=== PATIENT | male | born 1940 | race Caucasian/White ===

== ENCOUNTER 2020-08-21 14:30 | Outpatient (RCR) | payer MEDICARE, OTHER, SELFPAY ==
[2020-08-14 09:08] VITALS: BP 168/77; PULSE 79; RESP 18; TEMP 36.7
--- NOTE | 2020-08-14 11:22 | HP.PCM_ITS ---
(1) Decubitus ulcer of buttock, stage 1 Status: Acute Code(s): L89.301 - Pressure ulcer of unspecified buttock, stage 1 (2) Diabetic foot ulcer associated with type 1 diabetes mellitus Status: Acute Qualifiers: Diabetic foot ulcer location: heel Laterality: right Non-pressure ulcer stage: with other severity Qualified Code(s): E10.621 - Type 1 diabetes mellitus with foot ulcer; L97.418 - Non-pressure chronic ulcer of right heel and midfoot with other specified severity Code(s): E10.621 - Type 1 diabetes mellitus with foot ulcer; L97.509 - Non- pressure chronic ulcer of other part of unspecified foot with unspecified severity (3) Diabetic foot ulcer Status: Acute Qualifiers: Diabetic foot ulcer location: toe Diabetes mellitus type: type 1 Laterality: right Non-pressure ulcer stage: with other severity Qualified Code(s): E10.621 - Type 1 diabetes mellitus with foot ulcer; L97.518 - Non- pressure chronic ulcer of other part of right foot with other specified severity Code(s): E11.621 - Type 2 diabetes mellitus with foot ulcer; L97.509 - Non- pressure chronic ulcer of other part of unspecified foot with unspecified sev erity (4) 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 Status: Acute Qualifiers: Associated angina: without angina Qualified Code(s): I25.810 - Atherosclerosis of coronary artery bypass graft(s) without angina pectoris Code(s): I25.810 - Atherosclerosis of coronary artery bypass graft(s) without angina pectoris History of Present Illness Date of Service: 08/14/20 Chief Complaint: Follow-up bilateral buttocks right heel right great toe right 2nd toe right 5th toe History of Wound: 80-year-old white male with a history of open heart surgery recently had another heart attack this last summer 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 Supposedly developed these after rehab in an long-term all on the right leg. The buttocks is pretty much healed very dry skin from using drying agents we will suggest other agents to be used on his buttocks to make it skin more supple. Most areas on the right and left buttocks are all scabbed patient is also on renal dialysis. Past Medical History Past Medical History: Decubitus ulcers on the buttocks bilateral right heel ulcer right great toe right 2nd toe right 5th toe ulcers Allergies/Adverse Reactions: Allergies aspirin Adverse Reaction (Verified 08/14/20 10:17) NEEDS FOLLOW-UP listed as adverse reaction, yet pt is take it daily. atorvastatin [From Lipitor] Adverse Reaction (Verified 08/14/20 10:17) NEEDS FOLLOW-UP Penicillins Adverse Reaction (Verified 08/14/20 10:17) NEEDS FOLLOW-UP Home Medications: Ambulatory Orders Medication Instructions Recorded Allopurinol [Zyloprim] 150 mg PO DAILYCM 08/14/20 Amiodarone HCl 400 mg PO BID 08/14/20 Aspirin [Aspirin, Baby] 81 mg PO DAILY@0800 08/14/20 B Complex W-C No.20/Folic Acid 1 mg PO DAILY 08/14/20 [Renal Caps Softgel] Bumetanide 1 mg PO DAILY 08/14/20 Clopidogrel Bisulfate [Plavix] 75 mg PO DAILY 08/14/20 Gabapentin [Neurontin] 100 mg PO DAILY 08/14/20 Lactobacillus Acidophilus 2 tab BC DAILY 08/14/20 [Acidophilus] Lisinopril [Zestril] 2.5 mg BC DAILY 08/14/20 Metoprolol Tartrate [Lopressor 50 mg PO DAILY 08/14/20 (Beta Pedro)] Pantoprazole Sodium [Protonix] 40 mg PO DAILY 08/14/20 Ropinirole HCl 0.25 mg BC DAILY 08/14/20 Simvastatin [Zocor] 40 mg PO QHS 08/14/20 Lives: Spouse/ Significant Other Review of Systems Constitutional: Denies: Chills, Fever Eyes: Denies: Blurred vision, Drainage, Pain HEENT: Denies: Difficulty Hearing, Difficulty Swallowing, Sore Throat, Visual Changes Cardiovascular: Denies: Chest Pain, Palpitations, Syncope Respiratory: Denies: Cough, Shortness of Breath Gastrointestinal: Denies: Abdominal Pain, Nausea, Vomiting Genitourinary: Denies: Dysuria, Frequency Musculoskeletal: Denies: Joint Pain, Muscle pain Skin: Reports: - - Right heel decubitus ulcer with odor right great toenail and top of toe eschar that is hardened not mushy or soft right 2nd toe open more superficial right 5th toenail blackened and firm. Denies: Jaundice, Rash Neurological: Denies: Balance problems, Change in Speech, Difficulty swallowing, Focal weakness Psychiatric: Denies: Anxiety, Depression Endocrine: Denies: Change in Body Habitus Hematologic/ Lymphatic: Denies: Adenopathy - Physical Exam Vital Signs Temp Pulse Resp BP 98.0 F 79 18 168/77 H 08/14/20 09:08 08/14/20 09:08 08/14/20 09:08 08/14/20 09:08 General: Oriented x3, Cooperative, Well developed HEENT: Atraumatic, PERRLA Oral: Moist Mucosa Neck: Supple, No JVD Lungs: Clear to auscultation, Normal air movement Cardiovascular: Regular rate, Regular Rhythm Abdomen: Bowel Sounds Present, Soft, Non Tender, No Hepato-splenomegaly Extremities: No clubbing, No edema Skin: Ulcer/ Wound - Right heel decubitus ulcer with odor right great toe nail and top of toe black and hard eschar, right 2nd toe open superficial right 5th toenail hardened black Wound Measurements and Assessment WC - Nurse 1 - General Ulcer Measurement Start: 08/14/20 09:08 Freq: Status: Active Protocol: Activity Type Activity Date Activity User E-Sign Co-Sign Detail Recorded Client Recorded Date Recorded By Document 08/14/20 09:14 ID [id number] 08/14/20 09:48 ID 08/14/20 09:14 Wound Center Nurse 1 [Ulcer Assessment] #5 Bilateral Buttock -Current Size (cm) - Length 0.1 -Current Size (cm) - Width 0.1 -Current Size (cm) - Depth 0.1 -Total Square Cm 0.01 -Date of Last Picture (Recall this 08/14/20 field) -Photo Taken Yes -Epithelialization Large 67-100% -Exudate Amt None Present -Wound Margin Flat & Intact -Granulation Amt Large (67-100%) -Granulation Quality Pale,Country Walk,Red -Slough/Fibrin No -Necrosis Amt None Present (0 %) -Texture (Dana-wound Skin Appearance) Assessed,Rash -Moisture (Dana-wound Skin Appearance Assessed ) -Color (Dana-wound Skin Appearance) Assessed -Temperature (Dana-wound Skin No Abnormality Appearance) (Pt Warm) -Tenderness on Palpation (Dana-wound No Skin Appearance) -Ulcer Cleansing Rinsed/ Irrigated with Saline -Foul Odor after Cleansing No -Anesthetic Used 4% Lidocaine Solution #4 5th Right Toe -Current Size (cm) - Length 0.5 -Current Size (cm) - Width 0.5 -Current Size (cm) - Depth 0.1 -Total Square Cm 0.25 -Date of Last Picture (Recall this 08/14/20 field) -Photo Taken Yes -Exudate Amt None Present -Wound Margin Thickened -Slough/Fibrin No -Necrotic Tissue Type Eschar -Texture (Dana-wound Skin Appearance) Assessed -Moisture (Dana-wound Skin Appearance Assessed ) -Color (Dana-wound Skin Appearance) Assessed -Temperature (Dana-wound Skin No Abnormality Appearance) (Pt Warm) -Tenderness on Palpation (Dana-wound No Skin Appearance) -Ulcer Cleansing Rinsed/ Irrigated with Saline -Foul Odor after Cleansing No -Anesthetic Used 4% Lidocaine Solution #3 2nd Right Toe -Current Size (cm) - Length 0.5 -Current Size (cm) - Width 0.6 -Current Size (cm) - Depth 0.1 -Total Square Cm 0.30 -Date of Last Picture (Recall this 08/14/20 field) -Photo Taken Yes -Exudate Amt Small -Exudate Type Sanguineous -Wound Margin Thickened & Rolled Under -Granulation Amt Medium (34-66%) -Granulation Quality Pale,Country Walk,Red -Necrosis Amt Medium (34-66%) -Necrotic Tissue Type Adherent Slough -Texture (Dana-wound Skin Appearance) Assessed -Moisture (Dana-wound Skin Appearance Assessed ) -Color (Dana-wound Skin Appearance) Assessed -Temperature (Dana-wound Skin No Abnormality Appearance) (Pt Warm) -Tenderness on Palpation (Dana-wound No Skin Appearance) -Ulcer Cleansing Rinsed/ Irrigated with Saline -Foul Odor after Cleansing No -Anesthetic Used 4% Lidocaine Solution #2 Right Big Toe -Current Size (cm) - Length 2.2 -Current Size (cm) - Width 1.4 -Current Size (cm) - Depth 0.1 -Total Square Cm 3.08 -Date of Last Picture (Recall this 08/14/20 field) -Photo Taken Yes -Change in Wound Grade/Stage No Query Text:If change please identify the Stage/Grade in the comment (ie. S2 G3) -Wound Margin Thickened -Necrosis Amt Large (67-100%) -Necrotic Tissue Type Eschar -Texture (Dana-wound Skin Appearance) Assessed -Moisture (Dana-wound Skin Appearance Assessed ) -Color (Dana-wound Skin Appearance) Assessed -Temperature (Dana-wound Skin No Abnormality Appearance) (Pt Warm) -Tenderness on Palpation (Dana-wound No Skin Appearance) -Ulcer Cleansing Rinsed/ Irrigated with Saline -Foul Odor after Cleansing No -Anesthetic Used 4% Lidocaine Solution #1 Right Heel -Current Size (cm) - Length 3.0 -Current Size (cm) - Width 2.3 -Current Size (cm) - Depth 0.1 -Total Square Cm 6.90 -Date of Last Picture (Recall this 08/14/20 field) -Photo Taken Yes -Exudate Amt None Present -Wound Margin Thickened -Slough/Fibrin Yes -Necrosis Amt Large (67-100%) -Necrotic Tissue Type Eschar -Texture (Dana-wound Skin Appearance) Assessed -Moisture (Dana-wound Skin Appearance Assessed ) -Color (Dana-wound Skin Appearance) Assessed -Temperature (Dana-wound Skin No Abnormality Appearance) (Pt Warm) -Tenderness on Palpation (Dana-wound No Skin Appearance) -Ulcer Cleansing Rinsed/ Irrigated with Saline -Foul Odor after Cleansing No -Anesthetic Used 4% Lidocaine Solution [Edema Assessment] -Right Calf (cm) 33 -Right Ankle (cm) 28.5 WC - Nurse 2 - General Ulcer CM Notes Start: 08/14/20 09:08 Freq: Status: Active Protocol: Activity Type Activity Date Activity User E-Sign Co-Sign Detail Recorded Client Recorded Date Recorded By Document 08/14/20 09:48 MW [id number] 08/14/20 09:52 MW Document 08/14/20 09:53 MW [id number] 08/14/20 10:07 MW 08/14/20 08/14/20 09:48 09:53 Wound Center Nurse 2 [Procedure/Treatment] #5 Bilateral Buttock -Time 09:54 -Correct Patient Yes -Correct Side, Site, Position Yes -Correct Procedure Yes -Procedure Performed No -Post Debridement (cm) - Length 0 -Post Debridement (cm) - Width 0 -Post Debridement (cm) - Depth 0 -Total Square (Post) (cm) 0 -Wound/Ulcer Outcome Healed- Epithelialized #4 5th Right Toe -Time 09:55 -Correct Patient Yes -Correct Side, Site, Position Yes -Correct Procedure Yes -Procedure Performed No -Post Debridement (cm) - Length 2.7 -Post Debridement (cm) - Width 1.7 -Post Debridement (cm) - Depth 0 -Total Square (Post) (cm) 4.59 -Wound/Ulcer Outcome Not Healed #3 2nd Right Toe -Time 09:55 -Correct Patient Yes -Correct Side, Site, Position Yes -Correct Procedure Yes -Procedure Performed Yes -Type of Procedure Debridement -Clinical Debridement Subcutaneous -Tissue Removed Subcutaneous -Post Debridement (cm) - Length 0.5 -Post Debridement (cm) - Width 0.5 -Post Debridement (cm) - Depth 0.1 -Total Square (Post) (cm) 0.25 -Area of Debridement (cm) - Length 0.5 -Area of Debridement (cm) - Width 0.5 -Total Square (Area) (cm) 0.25 -Tunneling No -Undermining/Tunneling No -Circular Undermining No -Wound/Ulcer Outcome Not Healed -Ulcer Cleansing Rinsed/ Irrigated with Saline -Foul Odor after Cleansing No -Bioengineered Tissue No -Bleeding Controlled with Pressure -Offloading No -Treatment Response Procedure Tolerated Well -Debridement - Subq, 1st 20sq cm No #2 Right Big Toe -Time 09:56 -Correct Patient Yes -Correct Side, Site, Position Yes -Correct Procedure Yes -Procedure Performed No -Wound/Ulcer Outcome Not Healed #1 Right Heel -Time 09:56 -Correct Patient Yes -Correct Side, Site, Position Yes -Correct Procedure Yes -Clinical Debridement Subcutaneous -Tissue Removed Subcutaneous -Post Debridement (cm) - Length 2.3 -Post Debridement (cm) - Width 4.4 -Post Debridement (cm) - Depth 0.3 -Total Square (Post) (cm) 10.12 -Area of Debridement (cm) - Length 2.6 -Area of Debridement (cm) - Width 4.4 -Total Square (Area) (cm) 11.44 -Tunneling No -Undermining/Tunneling No -Circular Undermining No -Wound/Ulcer Outcome Not Healed -Ulcer Cleansing Rinsed/ Irrigated with Saline -Foul Odor after Cleansing No -Bioengineered Tissue No -Bleeding Controlled with Pressure -Offloading No -Treatment Response Procedure Tolerated Well -Debridement - Subq, 1st 20sq cm Yes [See Physician Procedure note for Specifics] Pain Scale: 0-10 Numeric [Pain] -Is Patient Pain Free? Yes Yes WC - Nurse 3 - General Ulcer D/C NN Start: 08/14/20 09:08 Freq: Status: Active Protocol: Activity Type Activity Date Activity User E-Sign Co-Sign Detail Recorded Client Recorded Date Recorded By Document 08/14/20 10:20 MT [id number] 08/14/20 10:23 MT 08/14/20 10:20 Wound Care Nurse 3 [Wound Dressing] #4 5th Right Toe -Other Dressing betadine -Primary Dressing Covered/Secured Dry Gauze,Dry with Gauze & Roll Gauze,Secured with Tape #3 2nd Right Toe -Other Dressing betadine -Primary Dressing Covered/Secured Dry Gauze & with Roll Gauze, Secured with Tape #2 Right Big Toe -Other Dressing fibracol, adaptic -Primary Dressing Covered/Secured Dry Gauze,Dry with Gauze & Roll Gauze,Secured with Tape #1 Right Heel -Ulcer Cleansing Rinsed/ Irrigated with Saline -Primary Dressing Applied Fibracol Plus 4x4 -Other Dressing nurses hat, adaptic -Primary Dressing Covered/Secured Dry Gauze, with Secured with Tape -Fibracol Plus 4x4 1 WC - Visit Discharge [Visit Discharge Information] -Discharge Condition Stable -Ambulatory Status Wheelchair -Transportation Private Auto -Medication Reconcilliation completed No & provided to patient/care provider -Notes: change daily, taught daughter how to make nurses hat. Musculoskeletal: No Tenderness to Palpation of Joints or Extremities Lymphatic: No Cervical, Supraclavicular, or Inguinal Adenopathy Neurological: Cranial nerves II-XII grossly intact, Neuro grossly intact Psych/Mental Status: Normal Affect, Appropriate Debridement Note Post-Debridement Measurements/Treatment WC - Nurse 2 - General Ulcer CM Notes Start: 08/14/20 09:08 Freq: Status: Active Protocol: Activity Type Activity Date Activity User E-Sign Co-Sign Detail Recorded Client Recorded Date Recorded By Document 08/14/20 09:48 MW [id number] 08/14/20 09:52 MW Document 08/14/20 09:53 MW [id number] 08/14/20 10:07 MW 08/14/20 08/14/20 09:48 09:53 Wound Center Nurse 2 #5 Bilateral Buttock -Time 09:54 -Correct Patient Yes -Correct Side, Site, Position Yes -Correct Procedure Yes -Procedure Performed No -Post Debridement (cm) - Length 0 -Post Debridement (cm) - Width 0 -Post Debridement (cm) - Depth 0 -Total Square (Post) (cm) 0 -Wound/Ulcer Outcome Healed- Epithelialized #4 5th Right Toe -Time 09:55 -Correct Patient Yes -Correct Side, Site, Position Yes -Correct Procedure Yes -Procedure Performed No -Post Debridement (cm) - Length 2.7 -Post Debridement (cm) - Width 1.7 -Post Debridement (cm) - Depth 0 -Total Square (Post) (cm) 4.59 -Wound/Ulcer Outcome Not Healed #3 2nd Right Toe -Time 09:55 -Correct Patient Yes -Correct Side, Site, Position Yes -Correct Procedure Yes -Procedure Performed Yes -Type of Procedure Debridement -Clinical Debridement Subcutaneous -Tissue Removed Subcutaneous -Post Debridement (cm) - Length 0.5 -Post Debridement (cm) - Width 0.5 -Post Debridement (cm) - Depth 0.1 -Total Square (Post) (cm) 0.25 -Area of Debridement (cm) - Length 0.5 -Area of Debridement (cm) - Width 0.5 -Total Square (Area) (cm) 0.25 -Tunneling No -Undermining/Tunneling No -Circular Undermining No -Wound/Ulcer Outcome Not Healed -Ulcer Cleansing Rinsed/ Irrigated with Saline -Foul Odor after Cleansing No -Bioengineered Tissue No -Bleeding Controlled with Pressure -Offloading No -Treatment Response Procedure Tolerated Well -Debridement - Subq, 1st 20sq cm No #2 Right Big Toe -Time 09:56 -Correct Patient Yes -Correct Side, Site, Position Yes -Correct Procedure Yes -Procedure Performed No -Wound/Ulcer Outcome Not Healed #1 Right Heel -Time 09:56 -Correct Patient Yes -Correct Side, Site, Position Yes -Correct Procedure Yes -Clinical Debridement Subcutaneous -Tissue Removed Subcutaneous -Post Debridement (cm) - Length 2.3 -Post Debridement (cm) - Width 4.4 -Post Debridement (cm) - Depth 0.3 -Total Square (Post) (cm) 10.12 -Area of Debridement (cm) - Length 2.6 -Area of Debridement (cm) - Width 4.4 -Total Square (Area) (cm) 11.44 -Tunneling No -Undermining/Tunneling No -Circular Undermining No -Wound/Ulcer Outcome Not Healed -Ulcer Cleansing Rinsed/ Irrigated with Saline -Foul Odor after Cleansing No -Bioengineered Tissue No -Bleeding Controlled with Pressure -Offloading No -Treatment Response Procedure Tolerated Well -Debridement - Subq, 1st 20sq cm Yes Pain Scale: 0-10 Numeric Is Patient Pain Free? Yes Yes WC - Nurse 3 - General Ulcer D/C NN Start: 08/14/20 09:08 Freq: Status: Active Protocol: Activity Type Activity Date Activity User E-Sign Co-Sign Detail Recorded Client Recorded Date Recorded By Document 08/14/20 10:20 ID [id number] 08/14/20 10:23 ID 08/14/20 10:20 Wound Care Nurse 3 #4 5th Right Toe -Other Dressing betadine -Primary Dressing Covered/Secured with Dry Gauze,Dry Gauze & Roll Gauze,Secured with Tape #3 2nd Right Toe -Other Dressing betadine -Primary Dressing Covered/Secured with Dry Gauze & Roll Gauze, Secured with Tape #2 Right Big Toe -Other Dressing fibracol, adaptic -Primary Dressing Covered/Secured with Dry Gauze,Dry Gauze & Roll Gauze,Secured with Tape #1 Right Heel -Ulcer Cleansing Rinsed/ Irrigated with Saline -Primary Dressing Applied Fibracol Plus 4x4 -Other Dressing nurses hat, adaptic -Primary Dressing Covered/Secured with Dry Gauze, Secured with Tape -Fibracol Plus 4x4 1 WC - Visit Discharge Discharge Condition Stable Ambulatory Status Wheelchair Transportation Private Auto Medication Reconcilliation completed & No provided to patient/care provider Notes: change daily, taught daughter how to make nurses hat. Wound debrided: Right heel decubitus ulcer Wound Grade/Stage: Stage III Type of Debridement: Excisional debridement Anesthesia Used: 5% Lidocaine Gel Depth: Down to and including healthy tissue, in the subcutaneous layer Percentage of wound debrided: 100 Instrument Used: #15 blade, Forceps, - - Scissors Tissue Removed: Eschar slough devitalized tissue bad odor Severity: Fat Layer Exposed Amount of bleeding with debridement: Mild Bleeding Controlled with: Compression and gauze Patient tolerated procedure well - Additional Wound Wound debrided: Right 2nd toe Wound Grade/Stage: Stage II Type of Debridement: Excisional debridement Anesthesia Used: 5% Lidocaine Gel Depth: Down to and including healthy tissue Percentage of wound debrided: 100 Instrument Used: 5mm curette, #15 blade, Forceps Tissue Removed: Eschar slough Severity: Limited To Skin Breakdown Amount of bleeding with debridement: Mild Bleeding Controlled with: Pressure, Compression and gauze - Additional Wound Wound debrided: Right 5th toe Operative Diagnosis: No debridement - Additional Wound Wound debrided: Right great toe Operative Diagnosis: No debridement Assessment/Plan Aerobic and anaerobic cultures obtained Active Problems (Last Updated 08/14/20 @ 10:03 by Julee Reynolds) Decubitus ulcer of buttock, stage 1 (Acute) Diabetic foot ulcer associated with type 1 diabetes mellitus (Acute) Diabetic foot ulcer (Acute) 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 Bilateral buttocks decubitus ulcer resolved. Right great toe ulcer unstageable. Right 2nd toe decubitus ulcer stage II. Right little toe decubitus ulcer unstageable Plan: Clean feet with Hibiclens. Apply Fibracol to wound bases of open wounds moistened cover with Adaptic gauze tape Archie. Right great toe right 5th toe painted with povidone-iodine 2-3 times a day for drying. Offload foot. Take metronidazole 250 3 times daily x14 days #42. We will call with the culture results. Follow-up in 1 week
[2020-08-21 15:03] VITALS: BP 119/48; PULSE 72; RESP 18; TEMP 36.1
[2020-08-21 16:20] VITALS: BP 120/50
--- NOTE | 2020-08-21 16:50 | RAD_ITS ---
HISTORY: FOOT ULCER ON HEEL Technique: Right foot AP, lateral, and oblique radiographs Comparison: None available Findings: There may be a chronic insufficiency fracture to the distal tuft of the great toe Bone mineral density is diminished. Atherosclerotic calcific plaque throughout the foot. Arthritis at the intertarsal joints as well as tarsometatarsal joints and interphalangeal joints. Soft tissue swelling about the foot Ulcer plantar to the weightbearing surface of the calcaneus without focal osseous erosion No focal abnormality or radiopaque foreign body is seen in the surrounding soft tissues. RAD/Foot min 3 Views IMPRESSION: Ulceration adjacent to the weightbearing surface of the calcaneus without osseous erosion perceived. Soft tissue swelling about the foot. Osteoporosis. Arthritis. Possible chronic fracture the distal tuft of the great toe at 2239 Reported and signed by: Andrés Holliday MD Electronically Signed: Andrés Holliday MD at 22:38 EST Tel , Service support ,
[2020-08-21 16:53] LABS: Absolute Lymphocyte Count 1.47 X10^3/uL (0.83-4.51); Absolute Neutrophil Count 6.8 X10^3/uL (2.0-7.7); Basophil# 0.06 X10^3/uL; Basophil% 0.6 % (0-1); Eosinophil# 0.28 X10^3/uL; Hematocrit 33.1 % (40-54); Hemoglobin 10.3 g/dL (13.0-16.5); Lymphocyte # 1.47 X10^3/ul (4.0); Lymphocyte % 15.8 % (19-41); Mean Corp Hgb Conc 31.1 g/dL (32-36); Mean Corpuscular Hgb 31.8 pg (27.0-32.0); Mean Corpuscular Volume 102.2 fL (80-94); Mean Platelet Vol. 10.4 fl (6.2-12.0); Monocyte# 0.69 X10^3/uL; Monocyte% 7.4 % (0-10); NRBC Flagged by Analyzer 0 % (0-5); Neutrophil # 6.75 X10^3/uL (2.7-7.7); Neutrophil % 72.7 % (47-70); Platelet Count 193 K/mm3 (150-450); RBC Distribution Width CV 17.3 % (11.6-14.6); RBC Distribution Width SD 64.7 fl (35.1-43.9); Red Blood Count 3.24 M/mm3 (4.6-6.2); White Blood Count 9.3 K/mm3 (4.4-11.0)
[2020-08-21 17:36] LABS: Erythrocyte Sedimentation Rate 38 mm/hr (0-20)
[2020-08-21 18:30] LABS: AST(SGOT) 21 U/L (15-37); Alanine Aminotransfer ALT/SGPT 22 U/L (16-61); Albumin, Serum 3.6 g/dL (3.2-5.0); Alkaline Phosphatase 77 U/L (45-117); Anion Gap 11 (5-15); BUN 67 mg/dL (7-18); BUN/Creat Ratio 8.2 RATIO (10-20); Calcium,Total 9.4 mg/dL (8.5-10.1); Chloride 96 mmol/L (98-107); Creatinine, Serum 8.19 mg/dL (0.70-1.30); EST Glomerular Filtration Rate 7 mL/min (>60); Est Glom Filt Rate - Afr Amer 8 mL/min (>60); Globulin 3.7 g/dL (2.2-4.2); Glucose 87 mg/dL (74-106); Potassium 3.7 mmol/L (3.5-5.1); Protein, Total 7.3 g/dL (6.4-8.2); Sodium Level 137 mmol/L (136-145)
--- NOTE | 2020-08-21 20:00 | PN.PCM_ITS ---
(1) Ulcer of right heel and midfoot with necrosis of muscle Status: Acute Code(s): L97.413 - Non-pressure chronic ulcer of right heel and midfoot with necrosis of muscle (2) Ulcer of right foot with fat layer exposed Status: Acute Code(s): L97.512 - Non-pressure chronic ulcer of other part of right foot with fat layer exposed (3) Peripheral vascular disease Status: Acute Code(s): I73.9 - Peripheral vascular disease, unspecified (4) ESRD (end stage renal disease) on dialysis Status: Acute Code(s): N18.6 - End stage renal disease; Z99.2 - Dependence on renal dialysis (5) Cellulitis of right lower limb Status: Acute Code(s): L03.115 - Cellulitis of right lower limb Type of Wound Date of Service: 08/21/20 Chief Complaint: Right heel ulcer. 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 He relates that he developed these ulcers after he was at the rehabilitation unit recovering from his open heart surgery. He has some discomfort to the wounds. He denies fever, chill, nausea, vomiting at this time. He is on hemodialysis. He is on hemodialysis Mondays and Fridays for end-stage renal disease. He has been taking for cefixime (400 mg PO daily), Bactrim (DS PO twice daily), and metronidazole (250 mg PO three times daily) as prescribed by another wound care center provider last week. He denies history of C. difficil e. His reports that he is approximately 5 foot 8 and weighs 170 pounds within the past week at dialysis. He goes to [facility] dialysis [facility]. The ulcers have been present for over a month. The ulcers continue to drain and have an odor. He has been changing the heel ulcer with Aquacel and the toe ulcer sites have been changed with Betadine. Progress of Wound: Infection noted - Physical Exam Vital Signs Temp Pulse Resp BP 97 F L 72 18 120/50 L 08/21/20 15:03 08/21/20 15:03 08/21/20 15:03 08/21/20 16:20 General: Alert, Oriented x3, Cooperative, No apparent distress HEENT: Atraumatic Extremities: No cyanosis, Capillary Refill Less than 3 Seconds, No Calf Tenderness - Right, Diminished Peripheral Pulses, Edema Skin: Ulcer/ Wound - Heel ulcer with probing to deep structures not directly bone. Fibrous and necrotic moist tissue is noted with odor and nonadhered eschar. There is no erythema or streaking or giovany purulence on expression. The eschar to the distal right fifth toe was removed with exposed firm white phalanx bone., - - Dry mummified eschar to distal hallux is well adhered. No bogginess or fluctuance on palpation Wound Measurements and Assessment WC - Nurse 1 - General Ulcer Measurement Start: 08/14/20 09:08 Freq: Status: Active Protocol: Activity Type Activity Date Activity User E-Sign Co-Sign Detail Recorded Client Recorded Date Recorded By Document 08/21/20 15:03 RB [id number] 08/21/20 15:17 RB 08/21/20 15:03 Wound Center Nurse 1 [Ulcer Assessment] #4 5th Right Toe -Combined with other wound No -Current Size (cm) - Length 0.1 -Current Size (cm) - Width 0.1 -Current Size (cm) - Depth 0.1 -Total Square Cm 0.01 -Tunneling No -Undermining/Tunneling No -Circular Undermining No -Exudate Amt None Present -Wound Margin Distinct, Outline Attached -Granulation Amt None Present (0 %) -Slough/Fibrin Yes -Necrosis Amt Large (67-100%) -Necrotic Tissue Type Eschar -Structure Exposed N/A -Texture (Dana-wound Skin Appearance) Assessed -Moisture (Dana-wound Skin Appearance Assessed ) -Color (Dana-wound Skin Appearance) Assessed -Temperature (Dana-wound Skin No Abnormality Appearance) (Pt Warm) -Tenderness on Palpation (Dana-wound No Skin Appearance) -Ulcer Cleansing Wound Cleanser -Foul Odor after Cleansing No -Anesthetic Used 5% Lidocaine Gel #3 2nd Right Toe -Combined with other wound No -Current Size (cm) - Length 0.1 -Current Size (cm) - Width 0.1 -Current Size (cm) - Depth 0.1 -Total Square Cm 0.01 -Tunneling No -Undermining/Tunneling No -Circular Undermining No -Exudate Amt Small -Exudate Type Serosanguineous -Wound Margin Distinct, Outline Attached -Granulation Amt Medium (34-66%) -Granulation Quality Mission -Slough/Fibrin Yes -Necrosis Amt Small (1-33%) -Necrotic Tissue Type Adherent Slough -Structure Exposed N/A -Texture (Dana-wound Skin Appearance) Assessed -Moisture (Dana-wound Skin Appearance Assessed ) -Color (Dana-wound Skin Appearance) Assessed -Temperature (Dana-wound Skin No Abnormality Appearance) (Pt Warm) -Tenderness on Palpation (Dana-wound No Skin Appearance) -Ulcer Cleansing Wound Cleanser -Foul Odor after Cleansing No -Anesthetic Used 5% Lidocaine Gel #2 Right Big Toe -Combined with other wound No -Current Size (cm) - Length 0.1 -Current Size (cm) - Width 0.1 -Current Size (cm) - Depth 0.1 -Total Square Cm 0.01 -Tunneling No -Undermining/Tunneling No -Circular Undermining No -Exudate Amt None Present -Wound Margin Distinct, Outline Attached -Granulation Amt None Present (0 %) -Slough/Fibrin Yes -Necrosis Amt Large (67-100%) -Necrotic Tissue Type Eschar -Structure Exposed N/A -Texture (Dana-wound Skin Appearance) Assessed -Moisture (Dana-wound Skin Appearance Assessed ) -Color (Dana-wound Skin Appearance) Assessed -Temperature (Dana-wound Skin No Abnormality Appearance) (Pt Warm) -Tenderness on Palpation (Dana-wound No Skin Appearance) -Ulcer Cleansing Wound Cleanser -Foul Odor after Cleansing No -Anesthetic Used 5% Lidocaine Gel #1 Right Heel -Combined with other wound No -Current Size (cm) - Length 2.5 -Current Size (cm) - Width 7.8 -Current Size (cm) - Depth 0.4 -Total Square Cm 19.50 -Epithelialization None Present -Tunneling No -Undermining/Tunneling No -Circular Undermining No -Exudate Amt Medium -Exudate Type Serosanguineous -Wound Margin Distinct, Outline Attached -Granulation Amt Small (1-33%) -Granulation Quality Mission -Slough/Fibrin Yes -Necrosis Amt Large (67-100%) -Necrotic Tissue Type Eschar -Structure Exposed N/A -Texture (Dana-wound Skin Appearance) Assessed, Friable, Scarring -Moisture (Dana-wound Skin Appearance Assessed ) -Color (Dana-wound Skin Appearance) Assessed -Temperature (Dana-wound Skin No Abnormality Appearance) (Pt Warm) -Tenderness on Palpation (Dana-wound No Skin Appearance) -Ulcer Cleansing Wound Cleanser -Foul Odor after Cleansing Yes -Anesthetic Used 5% Lidocaine Gel WC - Nurse 2 - General Ulcer CM Notes Start: 08/14/20 09:08 Freq: Status: Active Protocol: Activity Type Activity Date Activity User E-Sign Co-Sign Detail Recorded Client Recorded Date Recorded By Document 08/21/20 15:41 RENITA [id number] 08/21/20 15:51 08/21/20 15:41 Wound Center Nurse 2 [Procedure/Treatment] #4 5th Right Toe -Time 15:42 -Correct Patient Yes -Correct Side, Site, Position Yes -Correct Procedure Yes -Procedure Performed Yes -Type of Procedure Debridement -Clinical Debridement Subcutaneous -Tissue Removed Subcutaneous -Post Debridement (cm) - Length 0.5 -Post Debridement (cm) - Width 0.3 -Post Debridement (cm) - Depth 0.2 -Total Square (Post) (cm) 0.15 -Area of Debridement (cm) - Length 0.5 -Area of Debridement (cm) - Width 0.3 -Total Square (Area) (cm) 0.15 -Tunneling No -Undermining/Tunneling No -Circular Undermining No -Wound/Ulcer Outcome Not Healed -Ulcer Cleansing Rinsed/ Irrigated with Saline -Foul Odor after Cleansing No -Bioengineered Tissue No -Bleeding Controlled with Pressure -Offloading No -Treatment Response Procedure Tolerated Well -Debridement - Subq, 1st 20sq cm No #3 2nd Right Toe -Time 15:43 -Correct Patient Yes -Correct Side, Site, Position Yes -Correct Procedure Yes -Procedure Performed Yes -Type of Procedure Debridement -Clinical Debridement Subcutaneous -Tissue Removed Subcutaneous -Post Debridement (cm) - Length 0.5 -Post Debridement (cm) - Width 0.3 -Post Debridement (cm) - Depth 0.1 -Total Square (Post) (cm) 0.15 -Area of Debridement (cm) - Length 0.5 -Area of Debridement (cm) - Width 0.3 -Total Square (Area) (cm) 0.15 -Tunneling No -Undermining/Tunneling No -Circular Undermining No -Wound/Ulcer Outcome Not Healed -Ulcer Cleansing Rinsed/ Irrigated with Saline -Foul Odor after Cleansing No -Bioengineered Tissue No -Bleeding Controlled with Pressure -Offloading No -Treatment Response Procedure Tolerated Well -Debridement - Subq, 1st 20sq cm No #2 Right Big Toe -Time 15:43 -Correct Patient Yes -Correct Side, Site, Position Yes -Correct Procedure Yes -Procedure Performed Yes -Type of Procedure Debridement -Clinical Debridement Subcutaneous -Tissue Removed Subcutaneous -Post Debridement (cm) - Length 1.0 -Post Debridement (cm) - Width 1.5 -Post Debridement (cm) - Depth 0.1 -Total Square (Post) (cm) 1.50 -Area of Debridement (cm) - Length 1.0 -Area of Debridement (cm) - Width 1.5 -Total Square (Area) (cm) 1.50 -Tunneling No -Undermining/Tunneling No -Circular Undermining No -Wound/Ulcer Outcome Not Healed -Ulcer Cleansing Rinsed/ Irrigated with Saline -Foul Odor after Cleansing No -Bioengineered Tissue No -Bleeding Controlled with Pressure -Offloading No -Treatment Response Procedure Tolerated Well -Debridement - Subq, 1st 20sq cm No #1 Right Heel -Time 15:43 -Correct Patient Yes -Correct Side, Site, Position Yes -Correct Procedure Yes -Procedure Performed Yes -Type of Procedure Debridement -Clinical Debridement Subcutaneous -Tissue Removed Subcutaneous -Post Debridement (cm) - Length 2.5 -Post Debridement (cm) - Width 4.8 -Post Debridement (cm) - Depth 1.8 -Total Square (Post) (cm) 12.00 -Area of Debridement (cm) - Length 2.5 -Area of Debridement (cm) - Width 4.8 -Total Square (Area) (cm) 12.00 -Tunneling No -Undermining/Tunneling No -Circular Undermining No -Ulcer Cleansing Rinsed/ Irrigated with Saline -Foul Odor after Cleansing No -Bioengineered Tissue No -Bleeding Controlled with Pressure -Offloading No -Treatment Response Procedure Tolerated Well -Debridement - Subq, 1st 20sq cm Yes [See Physician Procedure note for Specifics] Pain Scale: 0-10 Numeric [Pain] -Is Patient Pain Free? Yes WC - Nurse 3 - General Ulcer D/C NN Start: 08/14/20 09:08 Freq: Status: Active Protocol: Activity Type Activity Date Activity User E-Sign Co-Sign Detail Recorded Client Recorded Date Recorded By Document 08/21/20 16:20 RB [id number] 08/21/20 16:22 RB 08/21/20 16:20 Wound Care Nurse 3 [Wound Dressing] #4 5th Right Toe -Ulcer Cleansing betadine -Primary Dressing Covered/Secured Dry Gauze,Dry with Gauze & Roll Gauze,Secured with Tape #3 2nd Right Toe -Ulcer Cleansing betadine -Primary Dressing Covered/Secured Dry Gauze,Dry with Gauze & Roll Gauze,Secured with Tape #2 Right Big Toe -Ulcer Cleansing betadine -Primary Dressing Covered/Secured Dry Gauze,Dry with Gauze & Roll Gauze,Secured with Tape #1 Right Heel -Ulcer Cleansing betadine -Primary Dressing Covered/Secured Dry Gauze,Dry with Gauze & Roll Gauze,Secured with Tape,Other -Other Covering abd nurses to heel [Post Procedure Tolerated] -Treatment Response Procedure Tolerated Well Vital Signs [Blood Pressure] -Blood Pressure (90/60-120/80) 120/50 L -Blood Pressure Mean (mm Hg) 73 -Source Monitor -Position Semi-Fowlers -Blood Pressure Location Left Arm Pain Scale: 0-10 Numeric [Pain] -Is Patient Pain Free? Yes Teaching: Wound Center [Wound Center Education] (Items with an * have Printed Materials Available- Please identify what is given to patient under the Teaching materials given to patient and caregiver Section. Dressing Your Wound -Person Taught Patient -Teaching Method Discussion, Demonstration -Response to teaching Verbalize understanding WC - Visit Discharge [Visit Discharge Information] -Discharge Condition Stable -Ambulatory Status Wheelchair -Transportation Private Auto -Medication Reconcilliation completed No & provided to patient/care provider -Clinical Summary of Care Provided Yes Musculoskeletal: No Tenderness to Palpation of Joints or Extremities, Muscle Wasting, - - Left lower extremity amputation Neurological: - - Diminished full sensation to debridement and light touch Psych/Mental Status: Normal Affect, Appropriate Debridement Note Post-Debridement Measurements/Treatment WC - Nurse 2 - General Ulcer CM Notes Start: 08/14/20 09:08 Freq: Status: Active Protocol: Activity Type Activity Date Activity User E-Sign Co-Sign Detail Recorded Client Recorded Date Recorded By Document 08/14/20 09:48 MW [id number] 08/14/20 09:52 MW Document 08/14/20 09:53 MW [id number] 08/14/20 10:07 MW Document 08/21/20 15:41 JF [id number] 08/21/20 15:51 JF 08/14/20 08/14/20 08/21/20 09:48 09:53 15:41 Wound Center Nurse 2 #5 Bilateral Buttock -Time 09:54 -Correct Patient Yes -Correct Side, Site, Position Yes -Correct Procedure Yes -Procedure Performed No -Post Debridement (cm) - Length 0 -Post Debridement (cm) - Width 0 -Post Debridement (cm) - Depth 0 -Total Square (Post) (cm) 0 -Wound/Ulcer Outcome Healed- Epithelialized #4 5th Right Toe -Time 09:55 15:42 -Correct Patient Yes Yes -Correct Side, Site, Position Yes Yes -Correct Procedure Yes Yes -Procedure Performed No Yes -Type of Procedure Debridement -Clinical Debridement Subcutaneous -Tissue Removed Subcutaneous -Post Debridement (cm) - Length 2.7 0.5 -Post Debridement (cm) - Width 1.7 0.3 -Post Debridement (cm) - Depth 0 0.2 -Total Square (Post) (cm) 4.59 0.15 -Area of Debridement (cm) - Length 0.5 -Area of Debridement (cm) - Width 0.3 -Total Square (Area) (cm) 0.15 -Tunneling No -Undermining/Tunneling No -Circular Undermining No -Wound/Ulcer Outcome Not Healed Not Healed -Ulcer Cleansing Rinsed/ Irrigated with Saline -Foul Odor after Cleansing No -Bioengineered Tissue No -Bleeding Controlled with Pressure -Offloading No -Treatment Response Procedure Tolerated Well -Debridement - Subq, 1st 20sq cm No #3 2nd Right Toe -Time 09:55 15:43 -Correct Patient Yes Yes -Correct Side, Site, Position Yes Yes -Correct Procedure Yes Yes -Procedure Performed Yes Yes -Type of Procedure Debridement Debridement -Clinical Debridement Subcutaneous Subcutaneous -Tissue Removed Subcutaneous Subcutaneous -Post Debridement (cm) - Length 0.5 0.5 -Post Debridement (cm) - Width 0.5 0.3 -Post Debridement (cm) - Depth 0.1 0.1 -Total Square (Post) (cm) 0.25 0.15 -Area of Debridement (cm) - Length 0.5 0.5 -Area of Debridement (cm) - Width 0.5 0.3 -Total Square (Area) (cm) 0.25 0.15 -Tunneling No No -Undermining/Tunneling No No -Circular Undermining No No -Wound/Ulcer Outcome Not Healed Not Healed -Ulcer Cleansing Rinsed/ Rinsed/ Irrigated with Irrigated with Saline Saline -Foul Odor after Cleansing No No -Bioengineered Tissue No No -Bleeding Controlled with Pressure Pressure -Offloading No No -Treatment Response Procedure Procedure Tolerated Well Tolerated Well -Debridement - Subq, 1st 20sq cm No No #2 Right Big Toe -Time 09:56 15:43 -Correct Patient Yes Yes -Correct Side, Site, Position Yes Yes -Correct Procedure Yes Yes -Procedure Performed No Yes -Type of Procedure Debridement -Clinical Debridement Subcutaneous -Tissue Removed Subcutaneous -Post Debridement (cm) - Length 1.0 -Post Debridement (cm) - Width 1.5 -Post Debridement (cm) - Depth 0.1 -Total Square (Post) (cm) 1.50 -Area of Debridement (cm) - Length 1.0 -Area of Debridement (cm) - Width 1.5 -Total Square (Area) (cm) 1.50 -Tunneling No -Undermining/Tunneling No -Circular Undermining No -Wound/Ulcer Outcome Not Healed Not Healed -Ulcer Cleansing Rinsed/ Irrigated with Saline -Foul Odor after Cleansing No -Bioengineered Tissue No -Bleeding Controlled with Pressure -Offloading No -Treatment Response Procedure Tolerated Well -Debridement - Subq, 1st 20sq cm No #1 Right Heel -Time 09:56 15:43 -Correct Patient Yes Yes -Correct Side, Site, Position Yes Yes -Correct Procedure Yes Yes -Procedure Performed Yes -Type of Procedure Debridement -Clinical Debridement Subcutaneous Subcutaneous -Tissue Removed Subcutaneous Subcutaneous -Post Debridement (cm) - Length 2.3 2.5 -Post Debridement (cm) - Width 4.4 4.8 -Post Debridement (cm) - Depth 0.3 1.8 -Total Square (Post) (cm) 10.12 12.00 -Area of Debridement (cm) - Length 2.6 2.5 -Area of Debridement (cm) - Width 4.4 4.8 -Total Square (Area) (cm) 11.44 12.00 -Tunneling No No -Undermining/Tunneling No No -Circular Undermining No No -Wound/Ulcer Outcome Not Healed -Ulcer Cleansing Rinsed/ Rinsed/ Irrigated with Irrigated with Saline Saline -Foul Odor after Cleansing No No -Bioengineered Tissue No No -Bleeding Controlled with Pressure Pressure -Offloading No No -Treatment Response Procedure Procedure Tolerated Well Tolerated Well -Debridement - Subq, 1st 20sq cm Yes Yes Pain Scale: 0-10 Numeric Is Patient Pain Free? Yes Yes Yes WC - Nurse 3 - General Ulcer D/C NN Start: 08/14/20 09:08 Freq: Status: Active Protocol: Activity Type Activity Date Activity User E-Sign Co-Sign Detail Recorded Client Recorded Date Recorded By Document 08/14/20 10:20 MT [id number] 08/14/20 10:23 MT Document 08/21/20 16:20 RB [id number] 08/21/20 16:22 RB 08/14/20 08/21/20 10:20 16:20 Wound Care Nurse 3 #4 5th Right Toe -Ulcer Cleansing betadine -Other Dressing betadine -Primary Dressing Covered/Secured with Dry Gauze,Dry Dry Gauze,Dry Gauze & Roll Gauze & Roll Gauze,Secured Gauze,Secured with Tape with Tape #3 2nd Right Toe -Ulcer Cleansing betadine -Other Dressing betadine -Primary Dressing Covered/Secured with Dry Gauze & Dry Gauze,Dry Roll Gauze, Gauze & Roll Secured with Gauze,Secured Tape with Tape #2 Right Big Toe -Ulcer Cleansing betadine -Other Dressing fibracol, adaptic -Primary Dressing Covered/Secured with Dry Gauze,Dry Dry Gauze,Dry Gauze & Roll Gauze & Roll Gauze,Secured Gauze,Secured with Tape with Tape #1 Right Heel -Ulcer Cleansing Rinsed/ betadine Irrigated with Saline -Primary Dressing Applied Fibracol Plus 4x4 -Other Dressing nurses hat, adaptic -Primary Dressing Covered/Secured with Dry Gauze, Dry Gauze,Dry Secured with Gauze & Roll Tape Gauze,Secured with Tape,Other -Other Covering abd nurses to heel -Fibracol Plus 4x4 1 Treatment Response Procedure Tolerated Well Vital Signs Blood Pressure (90/60-120/80) 120/50 L Blood Pressure Mean (mm Hg) 73 Source Monitor Position Semi-Fowlers Blood Pressure Location Left Arm Pain Scale: 0-10 Numeric Is Patient Pain Free? Yes Teaching: Wound Center Dressing Your Wound -Person Taught Patient -Teaching Method Discussion, Demonstration -Response to teaching Verbalize understanding WC - Visit Discharge Discharge Condition Stable Stable Ambulatory Status Wheelchair Wheelchair Transportation Private Auto Private Auto Medication Reconcilliation completed & No No provided to patient/care provider Clinical Summary of Care Provided Yes Notes: change daily, taught daughter how to make nurses hat. Wound debrided: heel Laterality: Right Type of Debridement: Excisional debridement Anesthesia Used: 5% Lidocaine Gel Depth: in the subcutaneous layer Percentage of wound debrided: 100 Instrument Used: #15 blade, Forceps Tissue Removed: fibrous, devitalized subcutaneous, biofilm, slough Severity: Fat Layer Exposed Amount of bleeding with debridement: Mild Bleeding Controlled with: Pressure Patient tolerated procedure well - Additional Wound Wound debrided: 5th toe Laterality: Right Type of Debridement: Excisional debridement Anesthesia Used: 5% Lidocaine Gel Depth: in the subcutaneous layer Percentage of wound debrided: 100 Instrument Used: #15 blade Tissue Removed: fibrous, devitalized subcutaneous, biofilm, slough Severity: Fat Layer Exposed Amount of bleeding with debridement: Mild Bleeding Controlled with: Pressure Patient tolerated procedure: Patient tolerated procedure well - Additional Wound Wound debrided: hallux eschar Laterality: Right Type of Debridement: Excisional debridement, Selective debridement Anesthesia Used: 4% Lidocaine Solution Depth: - - eschar only Percentage of wound debrided: 100 Instrument Used: #15 blade Tissue Removed: only eschar Amount of bleeding with debridement: None Patient tolerated procedure: Patient tolerated procedure well Assessment/Plan Active Problems (Last Updated 08/14/20 @ 10:03 by Julee Reynolds) Decubitus ulcer of buttock, stage 1 (Acute) Diabetic foot ulcer associated with type 1 diabetes mellitus (Acute) Diabetic foot ulcer (Acute) 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 Right great toe ulcer unstageable. Right fifth toe with bone exposed. Suspected peripheral vascular disease. Infection/cellulitis right foot. Delayed healing. End-stage renal disease on dialysis. Cardiac history Plan: I reviewed and discussed his case. I reviewed his last wound care center encounter note. Debridement was performed in an excisional subcutaneous manner as noted in the nursing panel. To continue to clean feet with Hibiclens daily. I recommend changing all of the ulcer sites daily with Dakin solution which he already has at home in a wet-to-dry manner. I reviewed his cultures which demonstrated the following growth: citrobacter koseri, pseudomonas aeroginosa and staphylococcus aureus. His current antibiotic selection is covering these microorganisms however I am concerned about the status of his kidney function. I am unable to see his recent labs that he reports he gets routinely at dialysis or in [place]. I recommended he gets updated labs today prior to returning home so I can appropriately assess his current antibiotics. Labs were ordered including CBC, CMP, ESR, and C-reactive protein. These were reviewed after clinic and his white blood cell count was 9.3, ESR 38, C-reactive protein 12.8. His creatinine is 8.19, GFR 7, and creatinine clearance < 10. I recommended changing the antibiotics to ciprofloxacin 500 mg tablet after each hemodialysis session on Wednesday and Wednesday, and doxycycline 100 mg tablet p.o. daily with a loading dose of 200 mg. This was verbally called into [facility] in [place] and the patient's daughter will pick this up this evening. I also recommend updating the x-ray which is not demonstrating soft tissue emphysema or osseous destruction of the calcaneus or foreign body or acute fracture dislocation. The distal phalanges of the toes appear to have diminished bone density which may be associated with age-related bone density loss in this site will be monitored with serial x-rays to monitor for any future bone infection development. I recommend he follows up with an infectious disease consultation within the next 1 to 2 weeks. To monitor for worsening local signs of infection and tissue loss and systemic illness which is not noted today. To call office immediately or go to the emergency room if these infection signs progress. He has not had recent noninvasive vascular studies and given his dysvascular appearance, prior amputation, and tissue loss at the digital level recommend a noninvasive vascular study. He wears socks and plastic sock covers. He is none ambulatory at this time and does not wear shoes. This should allow appropriate offloading during the day. He relates that he is in a recliner chair and his heel hangs over the edge. To be safe however his family is amendable to getting him an offloading donut pillow to prevent pressure on his heel while resting. To follow-up with the wound center next week. It is noted he is not going to be able to come in on Wednesday because he had fistula surgery on Wednesday afternoon. Therefore recommend he sees another new wound center provider earlier in the week. I can then follow-up with him in 2 weeks again on Wednesday. I answered all of his questions. I answered his family's question including his and daughter.
== END 2020-08-26 23:59 | disposition home or self-care (01) ==
LOC: WC 14:30
PROVIDERS: Podiatrist; Referring Provider Nurse Practitioner Family; Visit Provider Nurse Practitioner
DX: L89.613 Pressure ulcer of right heel, stage 3 (principal); L89.892 Pressure ulcer of other site, stage 2; L89.890 Pressure ulcer of other site, unstageable; L97.512 Non-pressure chronic ulcer of other part of right foot with fat layer exposed; L97.413 Non-pressure chronic ulcer of right heel and midfoot with necrosis of muscle; L03.115 Cellulitis of right lower limb; I13.2 Hypertensive heart and chronic kidney disease with heart failure and with stage 5 chronic kidney disease, or end stage renal disease; I50.40 Unspecified combined systolic (congestive) and diastolic (congestive) heart failure; N18.6 End stage renal disease; I25.810 Atherosclerosis of coronary artery bypass graft(s) without angina pectoris; I48.91 Unspecified atrial fibrillation; E78.5 Hyperlipidemia, unspecified; D63.8 Anemia in other chronic diseases classified elsewhere; I73.9 Peripheral vascular disease, unspecified; G25.81 Restless legs syndrome; K21.9 Gastro-esophageal reflux disease without esophagitis; Z79.82 Long term (current) use of aspirin; Z79.02 Long term (current) use of antithrombotics/antiplatelets; Z79.899 Other long term (current) drug therapy; I25.2 Old myocardial infarction; Z99.2 Dependence on renal dialysis; Z85.46 Personal history of malignant neoplasm of prostate; Z87.11 Personal history of peptic ulcer disease; Z87.891 Personal history of nicotine dependence
CPT/HCPCS: 11042; 36415; 73630; 80053; 85025; 85652; 86140; 87070; 87075; 87077; 87186; 87205; 99203; G0463

== ENCOUNTER 2020-09-18 15:00 | Outpatient (RCR) | payer MEDICARE, OTHER, SELFPAY ==
[2020-08-27 00:43] VITALS: BP 120/50; PULSE 72; RESP 18; TEMP 36.1
[2020-08-27 14:02] VITALS: BP 130/58; PULSE 74; RESP 16; TEMP 35.9
--- NOTE | 2020-08-27 15:02 | PN.PCM_ITS ---
(1) Macrocytic anemia Status: Chronic Code(s): D53.9 - Nutritional anemia, unspecified (2) 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 Status: Acute Qualifiers: Code(s): I25.810 - Atherosclerosis of coronary artery bypass graft(s) without angina pectoris (3) Decubitus ulcer of buttock, stage 1 Status: Acute Code(s): L89.301 - Pressure ulcer of unspecified buttock, stage 1 (4) ESRD (end stage renal disease) on dialysis Status: Acute Code(s): N18.6 - End stage renal disease; Z99.2 - Dependence on renal dialysis (5) Peripheral vascular disease Status: Acute Code(s): I73.9 - Peripheral vascular disease, unspecified (6) Ulcer of right foot with fat layer exposed Status: Acute Code(s): L97.512 - Non-pressure chronic ulcer of other part of right foot with fat layer exposed (7) Ulcer of right heel and midfoot with necrosis of muscle Status: Acute Code(s): L97.413 - Non-pressure chronic ulcer of right heel and midfoot with necrosis of muscle (8) Anemia of chronic renal failure, stage 5 Status: Chronic Code(s): N18.5 - Chronic kidney disease, stage 5; D63.1 - Anemia in chronic kidney disease Type of Wound Date of Service: 08/27/20 Chief Complaint: Right heel ulcer. Right first and fifth toe scabs History of Wound: 80-year-old white male with a history of open heart surgery recently had another heart attack this last summer. He relates that he developed these ulcers after he was at the rehabilitation unit recovering from his open heart surgery. He has some discomfort to the wounds. He denies fever, chill, nausea, vomiting at this time. He is on hemodialysis. He is on hemodialysis Mondays and Fridays for end-stage renal disease. He has been taking for cefixime (400 mg PO daily), Bactrim (DS PO twice daily), and metronidazole (250 mg PO three times daily) as prescribed by another wound care center provider last week. He denies history of C. difficile. His reports that he is approximately 5 foot 8 and weighs 170 pounds within the past week at dialysis. He goes to [facility]. The ulcers have been present for over a month. He has been changing the heel ulcer with Aquacel and the toe ulcer sites have been changed with Betadine. Progress of Wound: Infection of the R heel ulcer has resolved. - Physical Exam Vital Signs Temp Pulse Resp BP 96.6 F L 74 16 130/58 H 08/27/20 14:02 08/27/20 14:02 08/27/20 14:02 08/27/20 14:02 General: Alert, Cooperative, No apparent distress, Well developed, Well nourished Cardiovascular: Regular Rhythm Extremities: No clubbing, No cyanosis, Edema - he has pitting ankle edema L>R. I used a doppler to find the pulses. The DP and PT pulses could all be dopplered but I could not palpate any of the pulses., - - All toes on the Left foot blanched with elevation. The cap refil on the R was better. Skin: Ulcer/ Wound - The heel ulcer is 95% yellow swift adherent slough. There was no odor. There was no erythema around the wound and I did not observe any purulent DC. A #3 currette was used to attempt debridement of the slough but it was very adherent., - - The ulcer on the tip of the great toe was covered with a black eschar and this was debrided with a #15 blade. The fifth digit on the R was also debrided with a # 15 blade. There was some bleeding form the great toe and the little toe and this was controlled with compression. Wound Measurements and Assessment WC - Nurse 1 - General Ulcer Measurement Start: 08/27/20 14:02 Freq: Status: Active Protocol: Activity Type Activity Date Activity User E-Sign Co-Sign Detail Recorded Client Recorded Date Recorded By Document 08/27/20 14:02 DL [id number] 08/27/20 14:18 DL 08/27/20 14:02 Wound Center Nurse 1 [Ulcer Assessment] #4 5th Right Toe -Current Size (cm) - Length 0.6 -Current Size (cm) - Width 0.3 -Current Size (cm) - Depth 0.1 -Total Square Cm 0.18 -Photo Taken No -Exudate Amt None Present -Wound Margin Thickened -Granulation Amt None Present (0 %) -Necrosis Amt Small (1-33%) -Necrotic Tissue Type Eschar -Texture (Dana-wound Skin Appearance) Scarring -Moisture (Dana-wound Skin Appearance Dry/Scaly ) -Color (Dana-wound Skin Appearance) Hemosiderin Staining,Rubor -Temperature (Dana-wound Skin No Abnormality Appearance) (Pt Warm) -Tenderness on Palpation (Dana-wound No Skin Appearance) -Ulcer Cleansing Rinsed/ Irrigated with Saline -Foul Odor after Cleansing No -Anesthetic Used 4% Lidocaine Solution #3 2nd Right Toe -Current Size (cm) - Length 0.4 -Current Size (cm) - Width 0.4 -Current Size (cm) - Depth 0.1 -Total Square Cm 0.16 -Photo Taken No -Exudate Amt None Present -Wound Margin Thickened -Granulation Amt None Present (0 %) -Necrosis Amt Small (1-33%) -Necrotic Tissue Type Eschar -Structure Exposed N/A -Texture (Dana-wound Skin Appearance) Scarring -Moisture (Dana-wound Skin Appearance Dry/Scaly ) -Color (Dana-wound Skin Appearance) Hemosiderin Staining,Rubor -Temperature (Dana-wound Skin No Abnormality Appearance) (Pt Warm) -Tenderness on Palpation (Dana-wound No Skin Appearance) -Ulcer Cleansing Rinsed/ Irrigated with Saline -Foul Odor after Cleansing No -Anesthetic Used 4% Lidocaine Solution #2 Right Big Toe -Current Size (cm) - Length 1.8 -Current Size (cm) - Width 1.8 -Current Size (cm) - Depth 0.1 -Total Square Cm 3.24 -Photo Taken No -Exudate Amt None Present -Wound Margin Thickened -Granulation Amt None Present (0 %) -Necrosis Amt Medium (34-66%) -Necrotic Tissue Type Eschar -Structure Exposed N/A -Texture (Dana-wound Skin Appearance) Scarring -Moisture (Dana-wound Skin Appearance Dry/Scaly ) -Color (Dana-wound Skin Appearance) Hemosiderin Staining,Rubor -Temperature (Dana-wound Skin No Abnormality Appearance) (Pt Warm) -Tenderness on Palpation (Dana-wound No Skin Appearance) -Ulcer Cleansing Rinsed/ Irrigated with Saline -Foul Odor after Cleansing No -Anesthetic Used 4% Lidocaine Solution #1 Right Heel -Current Size (cm) - Length 2.4 -Current Size (cm) - Width 3 -Current Size (cm) - Depth 0.9 -Total Square Cm 7.2 -Photo Taken No -Exudate Amt Small -Exudate Type Serosanguineous -Wound Margin Distinct, Outline Attached -Granulation Amt Medium (34-66%) -Granulation Quality [place],Red -Necrosis Amt Medium (34-66%) -Necrotic Tissue Type Adherent Slough -Structure Exposed N/A -Texture (Dana-wound Skin Appearance) Scarring -Moisture (Dana-wound Skin Appearance Dry/Scaly ) -Color (Dana-wound Skin Appearance) Hemosiderin Staining,Rubor -Temperature (Dana-wound Skin No Abnormality Appearance) (Pt Warm) -Tenderness on Palpation (Dana-wound No Skin Appearance) -Ulcer Cleansing Wound Cleanser -Foul Odor after Cleansing No -Anesthetic Used 4% Lidocaine Solution Psych/Mental Status: Normal Affect, Appropriate Debridement Note Wound debrided: R heel Laterality: Right Type of Debridement: Selective debridement Anesthesia Used: 4% Lidocaine Solution Depth: - - slough could not be adequately debrided because it was very adherent Percentage of wound debrided: 40 Instrument Used: 3mm curette Amount of bleeding with debridement: None Patient tolerated procedure well - Additional Wound Wound debrided: R great toe Laterality: Right Wound Grade/Stage: unstageable - black eschar Type of Debridement: Selective debridement Anesthesia Used: 4% Lidocaine Solution Depth: Down to and including healthy tissue Percentage of wound debrided: 80 Instrument Used: #15 blade, Forceps Tissue Removed: eschar Severity: Fat Layer Exposed Amount of bleeding with debridement: Mild Bleeding Controlled with: Compression and gauze Patient tolerated procedure: Patient tolerated procedure well - Additional Wound Wound debrided: fifth toe Laterality: Right Type of Debridement: Selective debridement Anesthesia Used: 4% Lidocaine Solution Depth: Down to and including healthy tissue Percentage of wound debrided: 100 Instrument Used: #15 blade Severity: Limited To Skin Breakdown Amount of bleeding with debridement: Mild Bleeding Controlled with: Compression and gauze Patient tolerated procedure: Patient tolerated procedure well Assessment/Plan Impressions 1. stage III decubitus ulcer of the R heel 2. suspected arterial ulcers of the R great toe and fifth toe. These may be embolic .......I suspect he has AF because he is on amiodarone 3. PVD 4. Hx of a previous stent to the RLE 5. ESRD on HD 6. anemia of CRF 7. Macrocytosis of unknown etiology 8. Essential hypertension 9. Hyperlipidemia 10. Coronary artery disease 11. Legally blind 12. Paresthesias in both feet-suspect possibly secondary to peripheral vascular disease 13. Restless leg syndrome Plan Will recommend an AFO for the RLE that has a heel cutout to offload the pressure. Apply Santyl to all wounds on the R foot to chemically debride He already has a follow up appt with Dr. Carter in 1 week. He will schedule LEAS. I removed DM I form the problem list....he has never been diabetic. He also has never had a LLE BKA nor has he had debridement of a portion of the R foot. I recommend either Dr. Anton or Dr. Martinez as possible PCP's he could follow up with and Lexii was provided with the phone number to the office. I reviewed all previous wound care notes and discussed hx of pt and his dtr. I reviewed med list and all recent labs and microbiology results. Will need to make sure if he needs antibiotics in the future that they are really dosed. Active Problems (Last Updated 08/14/20 @ 10:03 by Julee Reynolds) Decubitus ulcer of buttock, stage 1 (Acute) 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 (Acute) Ulcer of right heel and midfoot with necrosis of muscle (Acute) Ulcer of right foot with fat layer exposed (Acute) Peripheral vascular disease (Acute) ESRD (end stage renal disease) on dialysis (Acute) Macrocytic anemia (Chronic) Assessment: Right heel decubitus ulcer with muscle and fascial tissue layer exposed. Right great toe ulcer unstageable. Right fifth toe with bone exposed. Suspected peripheral vascular disease. Infection/cellulitis right foot. Delayed healing. End-stage renal disease on dialysis. Cardiac history Plan: I reviewed and discussed his case. I reviewed his last wound care center encounter note. Debridement was performed in an excisional subcutaneous manner as noted in the nursing panel. To continue to clean feet with Hibiclens daily. I recommend changing all of the ulcer sites daily with Dakin solution which he already has at home in a wet-to-dry manner. I reviewed his cultures which demo nstrated the following growth: citrobacter koseri, pseudomonas aeroginosa and staphylococcus aureus. His current antibiotic selection is covering these microorganisms however I am concerned about the status of his kidney function. I am unable to see his recent labs that he reports he gets routinely at dialysis or in [place]. I recommended he gets updated labs today prior to returning home so I can appropriately assess his current antibiotics. Labs were ordered including CBC, CMP, ESR, and C-reactive protein. These were reviewed after clinic and his white blood cell count was 9.3, ESR 38, C-reactive protein 12.8. His creatinine is 8.19, GFR 7, and creatinine clearance < 10. I recommended changing the antibiotics to ciprofloxacin 500 mg tablet after each hemodialysis session on Wednesday and Wednesday, and doxycycline 100 mg tablet p.o. daily with a loading dose of 200 mg. This was verbally called into [facility] in [place] and the patient's daughter will pick this up this evening. I also recommend updating the x-ray which is not demonstrating soft tissue emphysema or osseous destruction of the calcaneus or foreign body or acute fracture dislocation. The distal phalanges of the toes appear to have diminished bone density which may be associated with age-related bone density loss in this site will be monitored with serial x-rays to monitor for any future bone infection development. I recommend he follows up with an infectious disease consultation within the next 1 to 2 weeks. To monitor for worsening local signs of infection and tissue loss and systemic illness which is not noted today. To call office immediately or go to the emergency room if these infection signs progress. He has not had recent noninvasive vascular studies and given his dysvascular appearance, prior a mputation, and tissue loss at the digital level recommend a noninvasive vascular study. He wears socks and plastic sock covers. He is none ambulatory at this time and does not wear shoes. This should allow appropriate offloading during the day. He relates that he is in a recliner chair and his heel hangs over the edge. To be safe however his family is amendable to getting him an offloading donut pillow to prevent pressure on his heel while resting. To follow-up with the wound center next week. It is noted he is not going to be able to come in on Wednesday because he had fistula surgery on Wednesday afternoon. Therefore recommend he sees another new wound center provider earlier in the week. I can then follow-up with him in 2 weeks again on Wednesday. I answered all of his questions. I answered his family's question including his and daughter. Office Visits / Consults: [id number] OV L3 New [id number]: [id number] Valorie subq tissue 20 sq cm/< History of Present Illnes - History of Present Illness Reason for Visit: Stage III decubitus ulcer right heel, eschar great toe and fifth toe History of Present Illness: Cory is an 80-year-old male with a past medical history of hypertension, hyperlipidemia, coronary artery disease, history of coronary stents, history of a stent to the right lower extremity recently for peripheral vascular disease, peripheral vascular disease, end-stage renal disease on hemodialysis, vision loss with legal blindness, anemia of chronic renal failure, macrocytosis, restless leg syndrome, stage I decubitus ulcer on the buttock (healed) and probable arterial ulcers (possibly embolic because he is on amiodarone) ulcers on the R great and fifth toes. He has been seen in the wound care center on 2 prior occasions, 08/14/2020 and 08/21/2020. He was treated for cellulitis of the right heel with Bactrim, metronidazole and cefixime. 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 He has never been diabetic and he has never had an amputation. At the time of his most recent cath he had a stent placed in the RLE in addition to coronary stents. He is using Dakins soln on the wounds. The odor from the R heel has resolved with the antibiotics. He denies fevers or chills. He has tingling in his distal legs but denies pain. He is using a wrap around the R leg to keep the heel off the bed but, this slides down and allows the heel to rest on the bed. Temp today is 96.6. Pulse rate is 74 and his blood pressure is 130/58. All lab from 08/21/2020 was reviewed. Hemoglobin is 10.3 with an increased MCV at 102.2. White blood cell count and platelets are within normal limits. The BUN was 67 with a creatinine of 8.19 and a potassium of 3.7. LFTs were unremarkable and the albumin was 3.6. He tells me that his doctor is retiring and he will need a new PCP. His dtr Lexii tells me that they are willing to come to [place] for a PCP. - Past Medical History Cardiac: CAD, HTN, TN, Hyperlipidemia Heme/Onc: Other - Anemia of chronic renal failure with macrocytosis
--- NOTE | 2020-09-04 13:17 | ART_ITS ---
Reason For Study: ULCER Procedure A bilateral lower extremity continuous wave Doppler with analog waveform analysis,segmental pressures,and ankle brachial indexes without exercise. Left Segmental Pressures Left brachial= 156mmHg. Left thigh = 88mmHg. Left posterior tibial artery = 48mmHg. Left dorsalis pedis artery = N/AmmHg. Left digit = N/A mmHg. The left dorsalis pedis waveforms are monophasic. The left posterior tibial artery waveforms are monophasic. Right Segmental Pressures Right brachial= N/AmmHg. Right thigh = 116mmHg. Right calf = 135mmHg. Right posterior tibial artery = 98mmHg. Right dorsalis pedis artery = 112mmHg. Right digit = 46 mmHg. The right thigh waveforms are monophasic. The right posterior tibial artery waveforms are monophasic. Indices The right ankle brachial index by the posterior tibial artery is .31. The right ankle brachial index by the dorsalis pedis is Absent. unable to get digit pressure due to nonhealing wound. The left posterior tibial artery index post exercise is .63. The left dorsalis pedis index post exercise is .72. Unable to get Brachial pressure due to active fistula. Interpretation Summary Monophasic Doppler waveforms are noted at ankle level bilaterally. Pulse-volume recording waveform amplitudes appear satisfactory at low-thigh on the right, but diminished at all other levels bilaterally. The resting right ankle-brachial index is severely diminished. The resting left ankle- brachial index is moderately diminished. The right digital brachial index was not determined. The left digital-brachial index is [id number] diminished. 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 There is evidence of [id number] arterial occlusive disease in the left lower extremity. Ordering Physician: Nora Carter Referring Physician: Truong Cassidy Performed By: LINDA MALAVE ALTHEA
[2020-09-04 14:37] VITALS: BP 163/54; PULSE 77; TEMP 36.6
--- NOTE | 2020-09-04 15:00 | BONBX_PTH ---
PATIENT: ZOE STOCK LOC: U#:[id number] AGE/SX: 80/M ROOM: RE09/18/[address]: Dr. Nora Carter DPM : 1940 BED: DIS: 09/26/2020 SPEC #: [id number] RECD: 09/05/20 07:54 STATUS: AMISHA RERigo #: [id number] BERNIE: 09/04/20 15:[address]: Nora Carter DEPT: SURGICAL PATHOLOGY RECD BY: Sparkle Kamara ENTERED: 09/05/20 07:55 SP TYPE: Bone OTHR DR: MD Truong Nino, [employer]-C Tissues: Bone of foot, NOS Procedures: Decalcification bone/plaque Surgery Specimen Level IV HEADER OPERATION: Bone biopsy right hallux PRE-OP DIAGNOSIS: Right hallux TISSUE SUBMITTED: Distal phalanx hallux MICROSCOPIC DIAGNOSIS Distal phalanx hallux, bone biopsy: A piece of bone with changes consistent with mild acute osteomyelitis. Adjacent soft tissue with acute inflammation. VERO:aubrie 09/11/20 COMMENT Clinical correlation and appropriate follow up are necessary. Case has been reviewed in consultation with Dr. Corea who concurs with the above diagnosis. IDC:AM MICROSCOPIC DESCRIPTION Slides are reviewed. GROSS DESCRIPTION Received in fixative is one container labeled with the patient's name and designated right great toe. The specimen consists of a piece of bone measuring 1 x 0.6 x 0.3 cm. The entire specimen is submitted in one cassette after decalcification. / VERO:aubrie 09/05/20 TC:2 CPT: 15084, 51561
[2020-09-04 15:57] VITALS: BP 160/54
[2020-09-04 18:17] LABS: M R Staph aureus DNA By PCR Negative (Negative); Probe Check PASS; Specimen Processing Control PASS; Staph aureus DNA By PCR POSITIVE (Negative)
--- NOTE | 2020-09-04 21:29 | PN.PCM_ITS ---
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 Code(s): L97.413 - Non-pressure chronic ulcer of right heel and midfoot with necrosis of muscle (2) Peripheral vascular disease Status: Acute Code(s): I73.9 - Peripheral vascular disease, unspecified (3) ESRD (end stage renal disease) on dialysis Status: Chronic Code(s): N18.6 - End stage renal disease; Z99.2 - Dependence on renal dialysis (4) Cellulitis of right lower limb Status: Acute Code(s): L03.115 - Cellulitis of right lower limb (5) Osteomyelitis of right foot Status: Acute Code(s): M86.9 - Osteomyelitis, unspecified Type of Wound Date of Service: 09/04/20 Chief Complaint: Right heel ulcer. Right first and fifth toe ulcers History of Wound: 80-year-old white male with a history of open heart surgery recently had another heart attack this last summer. He relates that he developed these ulcers after he was at the rehabilitation unit recovering from his open heart surgery. He has some discomfort to the wounds. He denies fever, chill, nausea, vomiting at this time. He is on hemodialysis on Mondays and Fridays for end-stage renal disease. He has been taking ciprofloxacin and doxycycline as advised for the past 2 weeks and has significant improvement. There is no longer an odor or infectious drainage. He does not have any redness adjacent to the wounds. He has an offloading with a donut pillow. He has been changing his dressings with Santyl as advised. He had his noninvasive vascular studies completed would like to review the results. His daughter is present during the visit today. Progress of Wound: Infection of the Right heel ulcer improving. Second toe ulcer, right. Hallux ulcer now with exposed necrotic bone, right - Physical Exam Vital Signs Temp Pulse Resp BP 97.8 F 77 16 160/54 H 09/04/20 14:37 09/04/20 14:37 08/27/20 14:02 09/04/20 15:57 General: Alert, Oriented x3, Cooperative, No apparent distress Extremities: No cyanosis, No edema, No Calf Tenderness, Diminished Peripheral Pulses Skin: Ulcer/ Wound - Second toe granular base. Hallux with exposed black necrotic distal phalanx with hematogenous drainage noted upon debrided. Heel ulcer with fibronecrotic tissue with resolved odor. No probe to bone however deep tissue is noted. The adjacent skin is hairless and atrophic, - - No bogginess or fluctuance on palpation Wound Measurements and Assessment WC - Nurse 1 - General Ulcer Measurement Start: 08/27/20 14:02 Freq: Status: Active Protocol: Activity Type Activity Date Activity User E-Sign Co-Sign Detail Recorded Client Recorded Date Recorded By Document 09/04/20 14:37 DELMY [id number] 09/04/20 14:45 KR 09/04/20 14:37 Wound Center Nurse 1 [Ulcer Assessment] #4 5th Right Toe -Current Size (cm) - Length 0.1 -Current Size (cm) - Width 0.1 -Current Size (cm) - Depth 0.1 -Total Square Cm 0.01 -Wound Margin Distinct, Outline Attached -Granulation Amt None Present (0 %) -Necrosis Amt None Present (0 %) -Texture (Dana-wound Skin Appearance) Assessed, Scarring -Moisture (Dana-wound Skin Appearance No Abnormality, ) Assessed -Color (Dana-wound Skin Appearance) No Abnormality, Assessed -Tenderness on Palpation (Dana-wound No Skin Appearance) -Ulcer Cleansing Rinsed/ Irrigated with Saline -Foul Odor after Cleansing No -Anesthetic Used 4% Lidocaine Solution #3 2nd Right Toe -Current Size (cm) - Length 0.1 -Current Size (cm) - Width 0.1 -Current Size (cm) - Depth 0.1 -Total Square Cm 0.01 -Exudate Amt None Present -Wound Margin Distinct, Outline Attached -Granulation Amt None Present (0 %) -Necrosis Amt Small (1-33%) -Necrotic Tissue Type Adherent Slough -Texture (Dana-wound Skin Appearance) Assessed, Scarring -Moisture (Dana-wound Skin Appearance No Abnormality, ) Assessed -Color (Dnaa-wound Skin Appearance) No Abnormality, Assessed -Temperature (Dana-wound Skin No Abnormality Appearance) (Pt Warm) -Tenderness on Palpation (Dana-wound No Skin Appearance) -Ulcer Cleansing Rinsed/ Irrigated with Saline -Foul Odor after Cleansing No -Anesthetic Used 4% Lidocaine Solution #2 Right Big Toe -Current Size (cm) - Length 1.5 -Current Size (cm) - Width 1.7 -Current Size (cm) - Depth 0.1 -Total Square Cm 2.55 -Exudate Amt None Present -Wound Margin Distinct, Outline Attached -Granulation Amt None Present (0 %) -Slough/Fibrin Yes -Necrosis Amt Large (67-100%) -Necrotic Tissue Type Adherent Slough -Texture (Dana-wound Skin Appearance) Assessed, Scarring -Moisture (Dana-wound Skin Appearance No Abnormality, ) Assessed -Temperature (Dana-wound Skin No Abnormality Appearance) (Pt Warm) -Tenderness on Palpation (Dana-wound No Skin Appearance) -Ulcer Cleansing Rinsed/ Irrigated with Saline -Foul Odor after Cleansing No -Anesthetic Used 4% Lidocaine Solution #1 Right Heel -Current Size (cm) - Length 2.5 -Current Size (cm) - Width 3.8 -Current Size (cm) - Depth 0.4 -Total Square Cm 9.50 -Exudate Amt Small -Exudate Type Serosanguineous -Wound Margin Distinct, Outline Attached -Granulation Amt None Present (0 %) -Necrosis Amt Large (67-100%) -Necrotic Tissue Type Adherent Slough -Texture (Dana-wound Skin Appearance) Assessed, Scarring -Moisture (Dana-wound Skin Appearance No Abnormality, ) Assessed -Color (Dana-wound Skin Appearance) No Abnormality -Temperature (Dana-wound Skin No Abnormality Appearance) (Pt Warm) -Tenderness on Palpation (Dana-wound No Skin Appearance) -Ulcer Cleansing Rinsed/ Irrigated with Saline -Foul Odor after Cleansing No -Anesthetic Used 4% Lidocaine Solution WC - Nurse 2 - General Ulcer CM Notes Start: 08/27/20 14:02 Freq: Status: Active Protocol: Activity Type Activity Date Activity User E-Sign Co-Sign Detail Recorded Client Recorded Date Recorded By Document 09/04/20 15:14 RENITA [id number] 09/04/20 15:30 RENITA 09/04/20 15:14 Wound Center Nurse 2 [Procedure/Treatment] #4 5th Right Toe -Correct Patient No -Correct Side, Site, Position No -Correct Procedure No -Procedure Performed No -Post Debridement (cm) - Length 0 -Post Debridement (cm) - Width 0 -Post Debridement (cm) - Depth 0 -Total Square (Post) (cm) 0 -Area of Debridement (cm) - Length 0 -Area of Debridement (cm) - Width 0 -Total Square (Area) (cm) 0 -Wound/Ulcer Outcome Healed- Epithelialized #3 2nd Right Toe -Time 15:17 -Correct Patient Yes -Correct Side, Site, Position Yes -Correct Procedure Yes -Procedure Performed Yes -Type of Procedure Debridement -Clinical Debridement Subcutaneous -Tissue Removed Subcutaneous -Post Debridement (cm) - Length 0.3 -Post Debridement (cm) - Width 0.3 -Post Debridement (cm) - Depth 0.1 -Total Square (Post) (cm) 0.09 -Area of Debridement (cm) - Length 0.3 -Area of Debridement (cm) - Width 0.3 -Total Square (Area) (cm) 0.09 -Tunneling No -Undermining/Tunneling No -Circular Undermining No -Wound/Ulcer Outcome Not Healed -Ulcer Cleansing Rinsed/ Irrigated with Saline -Foul Odor after Cleansing No -Bioengineered Tissue No -Bleeding Controlled with Pressure -Offloading No -Treatment Response Procedure Tolerated Well -Debridement - Subq, 1st 20sq cm No #2 Right Big Toe -Correct Patient Yes -Correct Side, Site, Position Yes -Correct Procedure Yes -Procedure Performed Yes -Type of Procedure Debridement -Clinical Debridement Bone -Tissue Removed Fascia,Tendon -Post Debridement (cm) - Length 1.5 -Post Debridement (cm) - Width 1.8 -Post Debridement (cm) - Depth 0.1 -Total Square (Post) (cm) 2.70 -Area of Debridement (cm) - Length 1.5 -Area of Debridement (cm) - Width 1.8 -Total Square (Area) (cm) 2.70 -Tunneling No -Undermining/Tunneling No -Circular Undermining No -Wound/Ulcer Outcome Not Healed -Ulcer Cleansing Rinsed/ Irrigated with Saline -Foul Odor after Cleansing No -Bioengineered Tissue No -Bleeding Controlled with Pressure -Offloading Yes -Type of Offloading Surgical Shoe -Treatment Response Procedure Tolerated Well -Debridement - Bone, 1st 20sq cm Yes #1 Right Heel -Time 15:27 -Correct Patient Yes -Correct Side, Site, Position Yes -Correct Procedure Yes -Procedure Performed Yes -Type of Procedure Debridement -Clinical Debridement Subcutaneous -Tissue Removed Subcutaneous -Post Debridement (cm) - Length 2.5 -Post Debridement (cm) - Width 3.8 -Post Debridement (cm) - Depth 1.0 -Total Square (Post) (cm) 9.50 -Area of Debridement (cm) - Length 2.5 -Area of Debridement (cm) - Width 3.8 -Total Square (Area) (cm) 9.50 -Tunneling No -Undermining/Tunneling No -Circular Undermining No -Wound/Ulcer Outcome Not Healed -Ulcer Cleansing Rinsed/ Irrigated with Saline -Foul Odor after Cleansing No -Bioengineered Tissue No -Bleeding Controlled with Pressure -Offloading No -Treatment Response Procedure Tolerated Well -Debridement - Subq, 1st 20sq cm Yes [See Physician Procedure note for Specifics] Pain Scale: 0-10 Numeric [Pain] -Is Patient Pain Free? Yes - Nurse 3 - General Ulcer D/C NN Start: 08/27/20 14:02 Freq: Status: Active Protocol: Activity Type Activity Date Activity User E-Sign Co-Sign Detail Recorded Client Recorded Date Recorded By Document 09/04/20 15:57 RB [id number] 09/04/20 15:59 RB 09/04/20 15:57 Wound Care Nurse 3 [Wound Dressing] #3 2nd Right Toe -Other Dressing HYDROGEL -Primary Dressing Covered/Secured Dry Gauze,Dry with Gauze & Roll Gauze,Secured with Tape #2 Right Big Toe -Other Dressing HYDROGEL -Primary Dressing Covered/Secured Dry Gauze,Dry with Gauze & Roll Gauze,Secured with Tape #1 Right Heel -Other Dressing HYDROGEL -Primary Dressing Covered/Secured Dry Gauze,Dry with Gauze & Roll Gauze,Secured with Tape [Post Procedure Tolerated] -Treatment Response Procedure Tolerated Well Vital Signs [Blood Pressure] -Blood Pressure (90/60-120/80) 160/54 H -Blood Pressure Mean (mm Hg) 89 -Source Monitor -Position Semi-Fowlers -Blood Pressure Location Left Arm Pain Scale: 0-10 Numeric [Pain] -Is Patient Pain Free? Yes WC - Visit Discharge [Visit Discharge Information] -Discharge Condition Stable -Ambulatory Status Wheelchair -Transportation Private Auto -Medication Reconcilliation completed No & provided to patient/care provider -Clinical Summary of Care Provided Yes Musculoskeletal: No Tenderness to Palpation of Joints or Extremities, Muscle Wasting Neurological: - - Diminished sensation light touch Psych/Mental Status: Normal Affect, Appropriate Debridement Note Post-Debridement Measurements/Treatment DANIEL - Nurse 2 - General Ulcer CM Notes Start: 08/27/20 14:02 Freq: Status: Active Protocol: Activity Type Activity Date Activity User E-Sign Co-Sign Detail Recorded Client Recorded Date Recorded By Document 08/27/20 16:17 PL [id number] 08/27/20 16:20 PL Document 09/04/20 15:14 RENITA [id number] 09/04/20 15:30 08/27/20 09/04/20 16:17 15:14 Wound Center Nurse 2 #4 5th Right Toe -Time 14:40 -Correct Patient Yes No -Correct Side, Site, Position Yes No -Correct Procedure Yes No -Procedure Performed Yes No -Type of Procedure Debridement -Clinical Debridement Subcutaneous -Tissue Removed Subcutaneous -Post Debridement (cm) - Length 0.6 0 -Post Debridement (cm) - Width 0.3 0 -Post Debridement (cm) - Depth 0.1 0 -Total Square (Post) (cm) 0.18 0 -Area of Debridement (cm) - Length 0.6 0 -Area of Debridement (cm) - Width 0.3 0 -Total Square (Area) (cm) 0.18 0 -Tunneling No -Undermining/Tunneling No -Circular Undermining No -Wound/Ulcer Outcome Not Healed Healed- Epithelialized -Ulcer Cleansing Rinsed/ Irrigated with Saline -Foul Odor after Cleansing No -Bioengineered Tissue No -Debridement - Subq, 1st 20sq cm No #3 2nd Right Toe -Time 14:40 15:17 -Correct Patient Yes Yes -Correct Side, Site, Position Yes Yes -Correct Procedure Yes Yes -Procedure Performed Yes Yes -Type of Procedure Debridement Debridement -Clinical Debridement Subcutaneous Subcutaneous -Tissue Removed Subcutaneous Subcutaneous -Post Debridement (cm) - Length 0.4 0.3 -Post Debridement (cm) - Width 0.4 0.3 -Post Debridement (cm) - Depth 0.1 0.1 -Total Square (Post) (cm) 0.16 0.09 -Area of Debridement (cm) - Length 0.4 0.3 -Area of Debridement (cm) - Width 0.4 0.3 -Total Square (Area) (cm) 0.16 0.09 -Tunneling No No -Undermining/Tunneling No No -Circular Undermining No No -Wound/Ulcer Outcome Not Healed Not Healed -Ulcer Cleansing Rinsed/ Rinsed/ Irrigated with Irrigated with Saline Saline -Foul Odor after Cleansing No No -Bioengineered Tissue No No -Bleeding Controlled with Pressure -Offloading No -Treatment Response Procedure Tolerated Well -Debridement - Subq, 1st 20sq cm No No #2 Right Big Toe -Time 14:40 -Correct Patient Yes Yes -Correct Side, Site, Position Yes Yes -Correct Procedure Yes Yes -Procedure Performed Yes Yes -Type of Procedure Debridement Debridement -Clinical Debridement Subcutaneous Bone -Tissue Removed Subcutaneous Fascia,Tendon -Post Debridement (cm) - Length 1.8 1.5 -Post Debridement (cm) - Width 1.8 1.8 -Post Debridement (cm) - Depth 0.1 0.1 -Total Square (Post) (cm) 3.24 2.70 -Area of Debridement (cm) - Length 1.8 1.5 -Area of Debridement (cm) - Width 1.8 1.8 -Total Square (Area) (cm) 3.24 2.70 -Tunneling No No -Undermining/Tunneling No No -Circular Undermining No No -Wound/Ulcer Outcome Not Healed Not Healed -Ulcer Cleansing Rinsed/ Rinsed/ Irrigated with Irrigated with Saline Saline -Foul Odor after Cleansing No No -Bioengineered Tissue No No -Bleeding Controlled with Pressure -Offloading Yes -Type of Offloading Surgical Shoe -Treatment Response Procedure Tolerated Well -Debridement - Subq, 1st 20sq cm No -Debridement - Bone, 1st 20sq cm Yes #1 Right Heel -Time 14:40 15:27 -Correct Patient Yes Yes -Correct Side, Site, Position Yes Yes -Correct Procedure Yes Yes -Procedure Performed Yes Yes -Type of Procedure Debridement Debridement -Clinical Debridement Subcutaneous Subcutaneous -Tissue Removed Subcutaneous Subcutaneous -Post Debridement (cm) - Length 2.4 2.5 -Post Debridement (cm) - Width 3 3.8 -Post Debridement (cm) - Depth 0.9 1.0 -Total Square (Post) (cm) 7.2 9.50 -Area of Debridement (cm) - Length 2.4 2.5 -Area of Debridement (cm) - Width 3 3.8 -Total Square (Area) (cm) 7.2 9.50 -Tunneling No No -Undermining/Tunneling No No -Circular Undermining No No -Wound/Ulcer Outcome Healed- Not Healed Surgical Closure -Ulcer Cleansing Rinsed/ Irrigated with Saline -Foul Odor after Cleansing No No -Bioengineered Tissue No No -Bleeding Controlled with Pressure -Offloading No -Treatment Response Procedure Tolerated Well -Debridement - Subq, 1st 20sq cm Yes Yes Pain Scale: 0-10 Numeric Is Patient Pain Free? Yes Yes - Nurse 3 - General Ulcer D/C NN Start: 08/27/20 14:02 Freq: Status: Active Protocol: Activity Type Activity Date Activity User E-Sign Co-Sign Detail Recorded Client Recorded Date Recorded By Document 09/04/20 15:57 RB [id number] 09/04/20 15:59 RB 09/04/20 15:57 Wound Care Nurse 3 #3 2nd Right Toe -Other Dressing HYDROGEL -Primary Dressing Covered/Secured with Dry Gauze,Dry Gauze & Roll Gauze,Secured with Tape #2 Right Big Toe -Other Dressing HYDROGEL -Primary Dressing Covered/Secured with Dry Gauze,Dry Gauze & Roll Gauze,Secured with Tape #1 Right Heel -Other Dressing HYDROGEL -Primary Dressing Covered/Secured with Dry Gauze,Dry Gauze & Roll Gauze,Secured with Tape Treatment Response Procedure Tolerated Well Vital Signs Blood Pressure (90/60-120/80) 160/54 H Blood Pressure Mean (mm Hg) 89 Source Monitor Position Semi-Fowlers Blood Pressure Location Left Arm Pain Scale: 0-10 Numeric Is Patient Pain Free? Yes WC - Visit Discharge Discharge Condition Stable Ambulatory Status Wheelchair Transportation Private Auto Medication Reconcilliation completed & No provided to patient/care provider Clinical Summary of Care Provided Yes Wound debrided: heel Laterality: Right Type of Debridement: Excisional debridement Anesthesia Used: 5% Lidocaine Gel Depth: in the subcutaneous layer Percentage of wound debrided: 100 Instrument Used: #15 blade, Forceps Tissue Removed: fibrous, devitalized subcutaneous, biofilm, slough Severity: Fat Layer Exposed Amount of bleeding with debridement: Mild Bleeding Controlled with: Pressure Patient tolerated procedure well - Additional Wound Wound debrided: distal 2nd toe Laterality: Right Type of Debridement: Excisional debridement Anesthesia Used: 5% Lidocaine Gel Depth: in the subcutaneous layer Percentage of wound debrided: 100 Instrument Used: #15 blade Tissue Removed: fibrous, devitalized subcutaneous, biofilm, slough Severity: Fat Layer Exposed Amount of bleeding with debridement: Mild Bleeding Controlled with: Pressure Patient tolerated procedure: Patient tolerated procedure well - Additional Wound Wound debrided: distal hallux Laterality: Right Type of Debridement: Excisional debridement Anesthesia Used: 5% Lidocaine Gel Depth: to bone Percentage of wound debrided: 100 Instrument Used: #15 blade, - - nipper Tissue Removed: fibrous, devitalized subcutaneous and bone, biofilm, slough Severity: Necrosis of Bone Amount of bleeding with debridement: Mild Bleeding Controlled with: Pressure Patient tolerated procedure: Patient tolerated procedure well Assessment/Plan Active Problems (Last Updated 08/14/20 @ 10:03 by Julee Reynolds) Decubitus ulcer of buttock, stage 1 (Acute) 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 (Acute) 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 Right great toe ulcer bone exposed; osteomyelitis. Right second to ulcer fat layer exposed, improving. Right fifth toe ulcer healed. Peripheral vascular disease. Infection/cellulitis right foot. Delayed healing. End-stage renal disease on dialysis. Cardiac history Plan: I reviewed and discussed his case. I reviewed his last wound care center encounter note. Debridement was performed in an excisional subcutaneous manner as noted in the nursing panel. To continue to clean feet with Hibiclens daily. I recommend changing all of the ulcer sites daily with santyl applied nickel thickness. I reviewed his cultures which demonstrated the following growth: citrobacter koseri, pseudomonas aeroginosa and staphylococcus aureus. Clinical improvement is noted. He has devitalized exposed bone that was debrided with a nipper. Clinically this is consistent with osteomyelitis and microbiology and pathology reports are pending. Specimens were sent today. I recommend extending the antibiotics until next week. He is taking 500 mg of ciprofloxacin once after hemodialysis sessions on Wednesday and Wednesday. He is additionally taking 100 mg of doxycycline once daily. Refills were verbally sent to [facility]. His infectious disease referral had to be rescheduled. His most recent labs were reviewed and his white blood count was 9.3, ESR 38, C-reactive protein 12.8. His creatinine is 8.19, GFR 7, and creatinine clearance < 10. Prior xrays were reviewed. The distal phalanges of the toes appear to have diminished bone density which may be associated with age-related bone density loss in this site will be monitored with serial x-rays to monitor for any future bone infection development. To monitor for worsening local signs of infection and tissue loss and systemic illness which is not noted today. His vascular studies were r eviewed with bilateral monophasic waveforms and poor ankle-brachial indices. I recommend a vascular surgery referral and he would like to follow-up with Dr. Taylor at an outside facility. I It is also noted that he had a low ejection fraction on his echocardiogram and part of his abnormal noninvasive vascular studies may be secondary to poor peripheral perfusion due to low cardiac output. To continue offloading by wearing surgical shoes to prevent pressure on the toes. I also recommend continue with donut offloading pillow to keep pressure off of his heel while resting and sleeping. An ankle foot orthotic prescription was also provided last week; likely a PRAFO boot. He is having difficulty obtaining this in the outpatient setting and will consider pursuing this if he is not able to tolerate the donut pillow. I answered all of his questions. I answered his family's question including his daughter.
[2020-09-11 15:12] VITALS: BP 149/75; PULSE 66; RESP 16
[2020-09-11 15:55] VITALS: BP 148/75
--- NOTE | 2020-09-11 20:34 | PN.PCM_ITS ---
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 Code(s): L97.413 - Non-pressure chronic ulcer of right heel and midfoot with necrosis of muscle (2) Peripheral vascular disease Status: Acute Code(s): I73.9 - Peripheral vascular disease, unspecified (3) ESRD (end stage renal disease) on dialysis Status: Chronic Code(s): N18.6 - End stage renal disease; Z99.2 - Dependence on renal dialysis (4) Cellulitis of right lower limb Status: Acute Code(s): L03.115 - Cellulitis of right lower limb (5) Osteomyelitis of right foot Status: Acute Code(s): M86.9 - Osteomyelitis, unspecified Comment: right hallux Type of Wound Date of Service: 09/11/20 Chief Complaint: Right heel ulcer. Right hallux ulcer. right second toe ulcer History of Wound: 80-year-old white male with a history of open heart surgery recently had another heart attack this last summer. He relates that he developed these ulcers after he was at the rehabilitation unit recovering from his open heart surgery. He denies fever, chill, nausea, vomiting at this time. He is on hemodialysis on Mondays and Fridays for end-stage renal disease. There is no longer an odor or infectious drainage. He does not have any redness adjacent to the wounds. He has an offloading with a donut pillow. He has been changing his dressings with Santyl as advised. He is scheduled to see vascular radiology specialist later this month on 09/25/2020. He has been taking oral antibiotics with the aformentioned improvement. These were periodically updated based on C & S results. 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 Although he was recently put on this in the outpatient setting, she relates he was also previously taking this during his prior hospital admission. His daughter is present during the visit today. Progress of Wound: Infection of the Right heel ulcer improving. Second toe ulcer, right. Hallux ulcer now with exposed necrotic bone, right - Physical Exam Vital Signs Temp Pulse Resp BP 97.8 F 66 16 148/75 H 09/04/20 14:37 09/11/20 15:12 09/11/20 15:12 09/11/20 15:55 General: Alert, Oriented x3, Cooperative, No apparent distress HEENT: Atraumatic Extremities: Capillary Refill Less than 3 Seconds, No Calf Tenderness, Diminished Peripheral Pulses, Edema - decreased Skin: Ulcer/ Wound - no purulence. erythema resolved. odor resolved. giovany necrosis resolved. bone to hallux (distal phalanx) is no longer exposed. there is probe to bone on the heel with improved adjacent granular tissue and central devitalized fibrous plug, - - distal 2 toe ulcer stable pale granular. healed fifth toe. adjacent skin is hairless and atrophic Wound Measurements and Assessment WC - Nurse 1 - General Ulcer Measurement Start: 08/27/20 14:02 Freq: Status: Active Protocol: Activity Type Activity Date Activity User E-Sign Co-Sign Detail Recorded Client Recorded Date Recorded By Document 09/11/20 15:12 [facility] [id number] 09/11/20 15:23 [facility] 09/11/20 15:12 Wound Center Nurse 1 [Ulcer Assessment] #3 2nd Right Toe -Combined with other wound No -Current Size (cm) - Length 0.3 -Current Size (cm) - Width 0.5 -Current Size (cm) - Depth 0.2 -Total Square Cm 0.15 -Photo Taken No -Epithelialization None Present -Tunneling No -Undermining/Tunneling No -Circular Undermining No -Exudate Amt None Present -Wound Margin Distinct, Outline Attached -Granulation Amt None Present (0 %) -Slough/Fibrin Yes -Necrosis Amt Large (67-100%) -Necrotic Tissue Type Adherent Slough -Texture (Dana-wound Skin Appearance) Assessed -Moisture (Dana-wound Skin Appearance Assessed,Dry/ ) Scaly -Color (Dana-wound Skin Appearance) Assessed -Temperature (Dana-wound Skin No Abnormality Appearance) (Pt Warm) -Tenderness on Palpation (Dana-wound No Skin Appearance) -Ulcer Cleansing Rinsed/ Irrigated with Saline -Foul Odor after Cleansing No -Anesthetic Used 4% Lidocaine Solution #2 Right Big Toe -Combined with other wound No -Current Size (cm) - Length 1.4 -Current Size (cm) - Width 1.2 -Current Size (cm) - Depth 0.1 -Total Square Cm 1.68 -Photo Taken No -Epithelialization None Present -Tunneling No -Undermining/Tunneling No -Circular Undermining No -Exudate Amt Small -Exudate Type Sanguineous -Wound Margin Distinct, Outline Attached -Granulation Amt None Present (0 %) -Slough/Fibrin Yes -Necrosis Amt Large (67-100%) -Necrotic Tissue Type Eschar -Texture (Dana-wound Skin Appearance) Assessed, Scarring -Moisture (Dana-wound Skin Appearance Assessed,Dry/ ) Scaly -Color (Dana-wound Skin Appearance) Assessed -Temperature (Dana-wound Skin No Abnormality Appearance) (Pt Warm) -Tenderness on Palpation (Dana-wound No Skin Appearance) -Ulcer Cleansing Rinsed/ Irrigated with Saline -Foul Odor after Cleansing No -Anesthetic Used 4% Lidocaine Solution #1 Right Heel -Combined with other wound No -Current Size (cm) - Length 2.3 -Current Size (cm) - Width 4.1 -Current Size (cm) - Depth 0.6 -Total Square Cm 9.43 -Photo Taken No -Epithelialization None Present -Tunneling No -Undermining/Tunneling No -Circular Undermining No -Exudate Amt Medium -Exudate Type Yellow/Green -Wound Margin Distinct, Outline Attached -Granulation Amt Medium (34-66%) -Granulation Quality Red -Slough/Fibrin Yes -Necrosis Amt Medium (34-66%) -Necrotic Tissue Type Adherent Slough -Texture (Dana-wound Skin Appearance) Assessed, Scarring -Moisture (Dana-wound Skin Appearance Assessed ) -Color (Dana-wound Skin Appearance) Assessed -Temperature (Dana-wound Skin No Abnormality Appearance) (Pt Warm) -Tenderness on Palpation (Dana-wound No Skin Appearance) -Ulcer Cleansing Rinsed/ Irrigated with Saline -Foul Odor after Cleansing No -Anesthetic Used 4% Lidocaine Solution WC - Nurse 2 - General Ulcer CM Notes Start: 08/27/20 14:02 Freq: Status: Active Protocol: Activity Type Activity Date Activity User E-Sign Co-Sign Detail Recorded Client Recorded Date Recorded By Document 09/11/20 15:42 RENITA [id number] 09/11/20 15:47 RENITA 09/11/20 15:42 Wound Center Nurse 2 [Procedure/Treatment] #3 2nd Right Toe -Time 15:42 -Correct Patient Yes -Correct Side, Site, Position Yes -Correct Procedure Yes -Procedure Performed Yes -Type of Procedure Debridement -Clinical Debridement Subcutaneous -Tissue Removed Subcutaneous -Post Debridement (cm) - Length 0.4 -Post Debridement (cm) - Width 0.5 -Post Debridement (cm) - Depth 0.1 -Total Square (Post) (cm) 0.20 -Area of Debridement (cm) - Length 0.4 -Area of Debridement (cm) - Width 0.5 -Total Square (Area) (cm) 0.20 -Tunneling No -Undermining/Tunneling No -Circular Undermining No -Wound/Ulcer Outcome Not Healed -Ulcer Cleansing Rinsed/ Irrigated with Saline -Foul Odor after Cleansing No -Bioengineered Tissue No -Bleeding Controlled with Pressure -Offloading No -Treatment Response Procedure Tolerated Well -Debridement - Subq, 1st 20sq cm Yes #2 Right Big Toe -Time 15:43 -Correct Patient Yes -Correct Side, Site, Position Yes -Correct Procedure Yes -Procedure Performed Yes -Type of Procedure Debridement -Clinical Debridement Subcutaneous -Tissue Removed Subcutaneous -Post Debridement (cm) - Length 1.5 -Post Debridement (cm) - Width 1.3 -Post Debridement (cm) - Depth 0.1 -Total Square (Post) (cm) 1.95 -Area of Debridement (cm) - Length 1.5 -Area of Debridement (cm) - Width 1.3 -Total Square (Area) (cm) 1.95 -Tunneling No -Undermining/Tunneling No -Circular Undermining No -Wound/Ulcer Outcome Not Healed -Ulcer Cleansing Rinsed/ Irrigated with Saline -Foul Odor after Cleansing No -Bioengineered Tissue No -Bleeding Controlled with Pressure -Offloading No -Treatment Response Procedure Tolerated Well -Debridement - Subq, 1st 20sq cm No #1 Right Heel -Time 15:47 -Correct Patient Yes -Correct Side, Site, Position Yes -Correct Procedure Yes -Procedure Performed Yes -Type of Procedure Debridement -Clinical Debridement Subcutaneous -Tissue Removed Subcutaneous -Post Debridement (cm) - Length 2.4 -Post Debridement (cm) - Width 4.2 -Post Debridement (cm) - Depth 0.6 -Total Square (Post) (cm) 10.08 -Area of Debridement (cm) - Length 2.4 -Area of Debridement (cm) - Width 4.2 -Total Square (Area) (cm) 10.08 -Tunneling No -Undermining/Tunneling No -Circular Undermining No -Wound/Ulcer Outcome Not Healed -Ulcer Cleansing Rinsed/ Irrigated with Saline -Foul Odor after Cleansing No -Bioengineered Tissue No -Bleeding Controlled with Pressure -Offloading No -Treatment Response Procedure Tolerated Well -Debridement - Subq, 1st 20sq cm No [See Physician Procedure note for Specifics] Pain Scale: 0-10 Numeric [Pain] -Is Patient Pain Free? Yes - Nurse 3 - General Ulcer D/C NN Start: 08/27/20 14:02 Freq: Status: Active Protocol: Activity Type Activity Date Activity User E-Sign Co-Sign Detail Recorded Client Recorded Date Recorded By Document 09/11/20 15:55 RB [id number] 09/11/20 15:57 RB 09/11/20 15:55 Wound Care Nurse 3 [Wound Dressing] #3 2nd Right Toe -Ulcer Cleansing Rinsed/ Irrigated with Saline -Other Dressing saline moistened gauze -Primary Dressing Covered/Secured Dry Gauze,Dry with Gauze & Roll Gauze,Secured with Tape #2 Right Big Toe -Ulcer Cleansing Rinsed/ Irrigated with Saline -Other Dressing saline moistened gauze -Primary Dressing Covered/Secured Dry Gauze,Dry with Gauze & Roll Gauze,Secured with Tape #1 Right Heel -Other Dressing saline moistened gauze , abd nurses hat -Primary Dressing Covered/Secured Dry Gauze,Dry with Gauze & Roll Gauze,Secured with Tape [Post Procedure Tolerated] -Treatment Response Procedure Tolerated Well Vital Signs [Blood Pressure] -Blood Pressure (90/60-120/80) 148/75 H -Blood Pressure Mean (mm Hg) 99 -Source Monitor -Position Semi-Fowlers -Blood Pressure Location Left Arm Pain Scale: 0-10 Numeric [Pain] -Is Patient Pain Free? Yes - Visit Discharge [Visit Discharge Information] -Discharge Condition Stable -Ambulatory Status Wheelchair -Transportation Private Auto -Medication Reconcilliation completed No & provided to patient/care provider -Clinical Summary of Care Provided Yes Musculoskeletal: No Tenderness to Palpation of Joints or Extremities, Muscle Wasting Neurological: Sensory exam intact to light touch and pain Psych/Mental Status: Normal Affect, Appropriate Debridement Note Post-Debridement Measurements/Treatment - Nurse 2 - General Ulcer CM Notes Start: 08/27/20 14:02 Freq: Status: Active Protocol: Activity Type Activity Date Activity User E-Sign Co-Sign Detail Recorded Client Recorded Date Recorded By Document 08/27/20 16:17 PL [id number] 08/27/20 16:20 PL Document 09/04/20 15:14 JF [id number] 09/04/20 15:30 JF Document 09/11/20 15:42 JF [id number] 09/11/20 15:47 JF 08/27/20 09/04/20 09/11/20 16:17 15:14 15:42 Wound Center Nurse 2 #4 5th Right Toe -Time 14:40 -Correct Patient Yes No -Correct Side, Site, Position Yes No -Correct Procedure Yes No -Procedure Performed Yes No -Type of Procedure Debridement -Clinical Debridement Subcutaneous -Tissue Removed Subcutaneous -Post Debridement (cm) - Length 0.6 0 -Post Debridement (cm) - Width 0.3 0 -Post Debridement (cm) - Depth 0.1 0 -Total Square (Post) (cm) 0.18 0 -Area of Debridement (cm) - Length 0.6 0 -Area of Debridement (cm) - Width 0.3 0 -Total Square (Area) (cm) 0.18 0 -Tunneling No -Undermining/Tunneling No -Circular Undermining No -Wound/Ulcer Outcome Not Healed Healed- Epithelialized -Ulcer Cleansing Rinsed/ Irrigated with Saline -Foul Odor after Cleansing No -Bioengineered Tissue No -Debridement - Subq, 1st 20sq cm No #3 2nd Right Toe -Time 14:40 15:17 15:42 -Correct Patient Yes Yes Yes -Correct Side, Site, Position Yes Yes Yes -Correct Procedure Yes Yes Yes -Procedure Performed Yes Yes Yes -Type of Procedure Debridement Debridement Debridement -Clinical Debridement Subcutaneous Subcutaneous Subcutaneous -Tissue Removed Subcutaneous Subcutaneous Subcutaneous -Post Debridement (cm) - Length 0.4 0.3 0.4 -Post Debridement (cm) - Width 0.4 0.3 0.5 -Post Debridement (cm) - Depth 0.1 0.1 0.1 -Total Square (Post) (cm) 0.16 0.09 0.20 -Area of Debridement (cm) - Length 0.4 0.3 0.4 -Area of Debridement (cm) - Width 0.4 0.3 0.5 -Total Square (Area) (cm) 0.16 0.09 0.20 -Tunneling No No No -Undermining/Tunneling No No No -Circular Undermining No No No -Wound/Ulcer Outcome Not Healed Not Healed Not Healed -Ulcer Cleansing Rinsed/ Rinsed/ Rinsed/ Irrigated with Irrigated with Irrigated with Saline Saline Saline -Foul Odor after Cleansing No No No -Bioengineered Tissue No No No -Bleeding Controlled with Pressure Pressure -Offloading No No -Treatment Response Procedure Procedure Tolerated Well Tolerated Well -Debridement - Subq, 1st 20sq cm No No Yes #2 Right Big Toe -Time 14:40 15:43 -Correct Patient Yes Yes Yes -Correct Side, Site, Position Yes Yes Yes -Correct Procedure Yes Yes Yes -Procedure Performed Yes Yes Yes -Type of Procedure Debridement Debridement Debridement -Clinical Debridement Subcutaneous Bone Subcutaneous -Tissue Removed Subcutaneous Fascia,Tendon Subcutaneous -Post Debridement (cm) - Length 1.8 1.5 1.5 -Post Debridement (cm) - Width 1.8 1.8 1.3 -Post Debridement (cm) - Depth 0.1 0.1 0.1 -Total Square (Post) (cm) 3.24 2.70 1.95 -Area of Debridement (cm) - Length 1.8 1.5 1.5 -Area of Debridement (cm) - Width 1.8 1.8 1.3 -Total Square (Area) (cm) 3.24 2.70 1.95 -Tunneling No No No -Undermining/Tunneling No No No -Circular Undermining No No No -Wound/Ulcer Outcome Not Healed Not Healed Not Healed -Ulcer Cleansing Rinsed/ Rinsed/ Rinsed/ Irrigated with Irrigated with Irrigated with Saline Saline Saline -Foul Odor after Cleansing No No No -Bioengineered Tissue No No No -Bleeding Controlled with Pressure Pressure -Offloading Yes No -Type of Offloading Surgical Shoe -Treatment Response Procedure Procedure Tolerated Well Tolerated Well -Debridement - Subq, 1st 20sq cm No No -Debridement - Bone, 1st 20sq cm Yes #1 Right Heel -Time 14:40 15:27 15:47 -Correct Patient Yes Yes Yes -Correct Side, Site, Position Yes Yes Yes -Correct Procedure Yes Yes Yes -Procedure Performed Yes Yes Yes -Type of Procedure Debridement Debridement Debridement -Clinical Debridement Subcutaneous Subcutaneous Subcutaneous -Tissue Removed Subcutaneous Subcutaneous Subcutaneous -Post Debridement (cm) - Length 2.4 2.5 2.4 -Post Debridement (cm) - Width 3 3.8 4.2 -Post Debridement (cm) - Depth 0.9 1.0 0.6 -Total Square (Post) (cm) 7.2 9.50 10.08 -Area of Debridement (cm) - Length 2.4 2.5 2.4 -Area of Debridement (cm) - Width 3 3.8 4.2 -Total Square (Area) (cm) 7.2 9.50 10.08 -Tunneling No No No -Undermining/Tunneling No No No -Circular Undermining No No No -Wound/Ulcer Outcome Healed- Not Healed Not Healed Surgical Closure -Ulcer Cleansing Rinsed/ Rinsed/ Irrigated with Irrigated with Saline Saline -Foul Odor after Cleansing No No No -Bioengineered Tissue No No No -Bleeding Controlled with Pressure Pressure -Offloading No No -Treatment Response Procedure Procedure Tolerated Well Tolerated Well -Debridement - Subq, 1st 20sq cm Yes Yes No Pain Scale: 0-10 Numeric Is Patient Pain Free? Yes Yes Yes WC - Nurse 3 - General Ulcer D/C NN Start: 08/27/20 14:02 Freq: Status: Active Protocol: Activity Type Activity Date Activity User E-Sign Co-Sign Detail Recorded Client Recorded Date Recorded By Document 09/04/20 15:57 RB [id number] 09/04/20 15:59 RB Document 09/11/20 15:55 RB [id number] 09/11/20 15:57 RB 09/04/20 09/11/20 15:57 15:55 Wound Care Nurse 3 #3 2nd Right Toe -Ulcer Cleansing Rinsed/ Irrigated with Saline -Other Dressing HYDROGEL saline moistened gauze -Primary Dressing Covered/Secured with Dry Gauze,Dry Dry Gauze,Dry Gauze & Roll Gauze & Roll Gauze,Secured Gauze,Secured with Tape with Tape #2 Right Big Toe -Ulcer Cleansing Rinsed/ Irrigated with Saline -Other Dressing HYDROGEL saline moistened gauze -Primary Dressing Covered/Secured with Dry Gauze,Dry Dry Gauze,Dry Gauze & Roll Gauze & Roll Gauze,Secured Gauze,Secured with Tape with Tape #1 Right Heel -Other Dressing HYDROGEL saline moistened gauze , abd nurses hat -Primary Dressing Covered/Secured with Dry Gauze,Dry Dry Gauze,Dry Gauze & Roll Gauze & Roll Gauze,Secured Gauze,Secured with Tape with Tape Treatment Response Procedure Procedure Tolerated Well Tolerated Well Vital Signs Blood Pressure (90/60-120/80) 160/54 H 148/75 H Blood Pressure Mean (mm Hg) 89 99 Source Monitor Monitor Position Semi-Fowlers Semi-Fowlers Blood Pressure Location Left Arm Left Arm Pain Scale: 0-10 Numeric Is Patient Pain Free? Yes Yes WC - Visit Discharge Discharge Condition Stable Stable Ambulatory Status Wheelchair Wheelchair Transportation Private Auto Private Auto Medication Reconcilliation completed & No No provided to patient/care provider Clinical Summary of Care Provided Yes Yes Wound debrided: heel, distal hallux,distal 2nd toe Laterality: Right Type of Debridement: Excisional debridement Depth: in the subcutaneous layer Percentage of wound debrided: 100 Instrument Used: #15 blade Tissue Removed: fibrous, devitalized subcutaneous, biofilm, slough Severity: Fat Layer Exposed Amount of bleeding with debridement: Mild Bleeding Controlled with: Pressure Patient tolerated procedure well Assessment/Plan Active Problems (Last Updated 08/14/20 @ 10:03 by Julee Reynolds) Decubitus ulcer of buttock, stage 1 (Acute) 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 (Acute) Ulcer 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 Right great toe ulcer bone exposed; osteomyelitis (debrided away previously). Right second to ulcer fat layer exposed, improving. Right fifth toe ulcer healed. Peripheral vascular disease. Infection/cellulitis right foot improving. Delayed healing. End-stage renal disease on dialysis. Cardiac history Plan: I reviewed and discussed his case. I reviewed his last wound care center encounter note. Debridement was performed in an excisional subcutaneous manner as noted in the nursing panel. To continue to clean feet with Hibiclens daily. I recommend changing all of the ulcer sites daily with 0.25% dakin wet to dry dressing. I reviewed his heel ulcer cultures which demonstrated the following growth: citrobacter koseri, pseudomonas aeroginosa and staphylococcus aureus. Clinical improvement is noted w/ oral antibiotics. He has devitalized exposed bone that was debrided with a nipper at the hallux site. Clinically this is consistent with osteomyelitis and microbiology results were reviewed (pseudomonas now cipro and levo resistant, staph simulins, and staph lugdunensis) and pathology reports are pending. I recommend extending the antibiotics until next week when he is scheduled to see infectious disease physician. His meds are renally dosed; he is on hemodialysis. 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 This medication was started earlier this week and it is noted he was previously on this in June while in the hospital which was when the convusions were first noted. He will hold off on this medication at this time. It appears there is a lack of oral antibiotic coverage available to cover his pseudomonas so this will be addressed with topical dakin wet to dry dressings. The case will futher be discussed w/ ID pharm specialist in the meantime. His most recent labs were reviewed and his white blood count was 9.3, ESR 38, C-reactive protein 12.8. His creatinine is 8.19, GFR 7, and creatinine clearance < 10. Prior xrays were reviewed. The distal phalanges of the toes appear to have diminished bone density which may be associated with age-related bone density loss in this site will be monitored with serial x-rays to monitor for any future bone infection development. To monitor for worsening local signs of infection and tissue loss and systemic illness which is not noted today. His vascular studies were reviewed with bilateral monophasic waveforms and poor ankle-brachial indices. I recommend a vascular surgery referral and he would like to follow-up with Dr. Taylor at an outside facility. This is scheduled for 09/25/2020. It is also noted that he had a low ejection fraction on his echocardiogram and part of his abnormal noninvasive vascular studies may be secondary to poor peripheral perfusion due to low cardiac output. To continue offloading by wearing surgical shoes to prevent pressure on the toes. I also recommend continue with donut offloading pillow to keep pressure off of his heel while resting and sleeping. This is going well so far. I answered all of his questions. I answered his family's question including his daughter and .
[2020-09-18 14:46] VITALS: BP 182/78; PULSE 64
--- NOTE | 2020-09-18 15:40 | PCM.HP.ID ---
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 Carter History of Present Illness: The patient is a 80 year old M with ESRD, several months of worsening R heel and R 1st ulcers. Had been on bactrim, cefixime, and flagyl previously. Referred to wound center, cxs taken of heel and then of toe. Currently on doxy, but toe now growing pseudomonas. Gets HD Mondays and Fridays. Here with his family. No fever, no n/v/d. Odor is improved from his wounds. Full ROS performed and neg except as noted above. 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 atorvastatin [From Lipitor] Adverse Reaction (Verified 08/14/20 10:17) NEEDS FOLLOW-UP Penicillins Adverse Reaction (Verified 08/14/20 10:17) NEEDS FOLLOW-UP Home Medications: Ambulatory Orders Medication Instructions Recorded Allopurinol [Zyloprim] 150 mg PO DAILYCM 08/14/20 Amiodarone HCl 400 mg PO BID 08/14/20 Aspirin [Aspirin, Baby] 81 mg PO DAILY@0800 08/14/20 B Complex W-C No.20/Folic Acid 1 mg PO DAILY 08/14/20 [Renal Caps Softgel] Bumetanide 1 mg PO DAILY 08/14/20 Clopidogrel Bisulfate [Plavix] 75 mg PO DAILY 08/14/20 Gabapentin [Neurontin] 100 mg PO DAILY 08/14/20 Lactobacillus Acidophilus 2 tab BC DAILY 08/14/20 [Acidophilus] Lisinopril [Zestril] 2.5 mg BC DAILY 08/14/20 Metoprolol Tartrate [Lopressor 50 mg PO DAILY 08/14/20 (Beta Pedro)] Pantoprazole Sodium [Protonix] 40 mg PO DAILY 08/14/20 Ropinirole HCl 0.25 mg BC DAILY 08/14/20 Simvastatin [Zocor] 40 mg PO QHS 08/14/20 Levofloxacin [Levaquin] 500 mg PO QODAY 10 Days #5 tab 09/09/20 Doxycycline 100 mg PO DAILY 7 Days #7 cap 09/12/20 - Social History Tobacco Use: non-smoker Vital Signs Temp Pulse Resp BP 97.8 F 64 16 182/78 H 09/04/20 14:37 09/18/20 14:46 09/11/20 15:12 09/18/20 14:46 Oxygen Delivery Method Room Air reviewed - Other Studies Radiology: [] reviewed Other Studies: [] Route of nutrition/ use of supplements: [] Nutritional Intake: [] IV Site: [] Trejo Catheter: [] - Physical Exam General: Alert, Cooperative, No apparent distress HEENT: Atraumatic, PERRLA, EOMI Neck: Supple, No Nodes Lungs: Clear to auscultation, Normal air movement Cardiovascular: Regular rate, Regular Rhythm Abdomen: Soft, Non Tender, Non-Distended Extremities: No edema Skin: Ulcer/ Wound - R toe and heel ulcers Musculoskeletal: No Tenderness to Palpation of Joints or Extremities Neurological: Cranial nerves II-XII grossly intact - Assessment/Plan Antibiotics: [] Assessment/Plan: [] Active and Suspected Problems (Last Updated 08/14/20 @ 10:03 by Julee Reynolds) Decubitus ulcer of buttock, stage 1 (Acute) 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 (Acute) Ulcer of right foot with fat layer exposed (Acute) Peripheral vascular disease (Acute) Cellulitis of right lower limb (Acute) Osteomyelitis of right foot (Acute) right hallux R foot osteo - toe cx 09/04 with PsA and CoNS x2. Discussed options with him and his family. Vascular study showed severe arterial disease. Will increase po doxy to 100mg bid and will start cefepime 3gm with dialysis on Mon and Fri. Dosing is complicated due to twice weekly HD; pt makes urine several times a day. Aiming for higher dose given depth of infection and poor perfusion to his leg. Return to clinic in 2 weeks, thank you, d/w Dr. Carter.
--- NOTE | 2020-09-18 17:16 | PN.PCM_ITS ---
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 Code(s): L97.413 - Non-pressure chronic ulcer of right heel and midfoot with necrosis of muscle (2) Peripheral vascular disease Status: Acute Code(s): I73.9 - Peripheral vascular disease, unspecified (3) ESRD (end stage renal disease) on dialysis Status: Chronic Code(s): N18.6 - End stage renal disease; Z99.2 - Dependence on renal dialysis (4) Cellulitis of right lower limb Status: Acute Code(s): L03.115 - Cellulitis of right lower limb (5) Osteomyelitis of right foot Status: Acute Code(s): M86.9 - Osteomyelitis, unspecified Comment: right hallux Type of Wound Date of Service: 09/18/20 Chief Complaint: Right heel ulcer. Right hallux ulcer. right second toe ulcer History of Wound: 80-year-old white male with a history of open heart surgery recently had another heart attack this last summer. He relates that he developed these ulcers after he was at the rehabilitation unit recovering from his open heart surgery. He denies fever, chill, nausea, vomiting at this time. He is on hemodialysis on Mondays and Fridays for end-stage renal disease. There is no longer an odor or infectious drainage. He does not have any redness adjacent to the wounds. He has an offloading with a donut pillow. He has been changing his dressings with Santyl as advised. He is scheduled to see vascular oral surgery technician later this month on 09/25/2020. He has been taking oral antibiotics with the aformentioned improvement. These were periodically updated based on C & S results. He is also seeing infectious disease today as a consultation. His daughter is present during the visit today. Progress of Wound: Infection of the Right heel ulcer improving. Second toe ulcer, right. Hallux ulcer now with exposed necrotic bone, right - Physical Exam Vital Signs Temp Pulse Resp BP 97.8 F 64 16 182/78 H 09/04/20 14:37 09/18/20 14:46 09/11/20 15:12 09/18/20 14:46 General: Alert, Oriented x3, Cooperative, No apparent distress Extremities: No cyanosis, No edema, No Calf Tenderness, Diminished Peripheral Pulses Skin: Ulcer/ Wound - No purulence, erythema, streaking, odor, infection. Impro vement in granulation tissue to the distal hallux is noted. Granular base second toe ulcer noted. Heel ulcer has resolved necrotic tissue and devitalized tissue. His skin is atrophic and hairless Wound Measurements and Assessment WC - Nurse 1 - General Ulcer Measurement Start: 08/27/20 14:02 Freq: Status: Active Protocol: Activity Type Activity Date Activity User E-Sign Co-Sign Detail Recorded Client Recorded Date Recorded By Document 09/18/20 14:46 KR [id number] 09/18/20 14:48 KR 09/18/20 14:46 Wound Center Nurse 1 [Ulcer Assessment] #3 2nd Right Toe -Current Size (cm) - Length 1 -Current Size (cm) - Width 0.6 -Current Size (cm) - Depth 0.1 -Total Square Cm 0.6 -Exudate Amt None Present -Wound Margin Distinct, Outline Attached -Granulation Amt None Present (0 %) -Necrosis Amt Small (1-33%) -Necrotic Tissue Type Adherent Slough -Texture (Dana-wound Skin Appearance) Assessed, Scarring -Moisture (Dana-wound Skin Appearance Assessed,Dry/ ) Scaly -Color (Dana-wound Skin Appearance) No Abnormality, Assessed -Temperature (Dana-wound Skin No Abnormality Appearance) (Pt Warm) -Tenderness on Palpation (Dana-wound No Skin Appearance) -Ulcer Cleansing Rinsed/ Irrigated with Saline -Foul Odor after Cleansing No -Anesthetic Used 4% Lidocaine Solution #2 Right Big Toe -Current Size (cm) - Length 1.7 -Current Size (cm) - Width 1.9 -Current Size (cm) - Depth 0.1 -Total Square Cm 3.23 -Exudate Amt None Present -Wound Margin Distinct, Outline Attached -Granulation Amt None Present (0 %) -Necrosis Amt Small (1-33%) -Necrotic Tissue Type Adherent Slough -Texture (Dana-wound Skin Appearance) Assessed, Scarring -Moisture (Dana-wound Skin Appearance Assessed,Dry/ ) Scaly -Color (Dana-wound Skin Appearance) No Abnormality, Assessed -Temperature (Dana-wound Skin No Abnormality Appearance) (Pt Warm) -Tenderness on Palpation (Dana-wound No Skin Appearance) -Ulcer Cleansing Rinsed/ Irrigated with Saline -Foul Odor after Cleansing No -Anesthetic Used 4% Lidocaine Solution #1 Right Heel -Current Size (cm) - Length 2 -Current Size (cm) - Width 4.1 -Current Size (cm) - Depth 0.3 -Total Square Cm 8.2 -Exudate Amt Small -Wound Margin Distinct, Outline Attached -Granulation Amt Small (1-33%) -Granulation Quality Red -Necrosis Amt Medium (34-66%) -Necrotic Tissue Type Adherent Slough -Texture (Dana-wound Skin Appearance) Assessed, Scarring -Moisture (Dana-wound Skin Appearance No Abnormality, ) Assessed -Color (Dana-wound Skin Appearance) No Abnormality, Assessed -Temperature (Dana-wound Skin No Abnormality Appearance) (Pt Warm) -Tenderness on Palpation (Dana-wound No Skin Appearance) -Ulcer Cleansing Rinsed/ Irrigated with Saline -Foul Odor after Cleansing No -Anesthetic Used 4% Lidocaine Solution WC - Nurse 2 - General Ulcer CM Notes Start: 08/27/20 14:02 Freq: Status: Active Protocol: Activity Type Activity Date Activity User E-Sign Co-Sign Detail Recorded Client Recorded Date Recorded By Document 09/18/20 14:50 RENITA [id number] 09/18/20 14:55 RENITA 09/18/20 14:50 Wound Center Nurse 2 [Procedure/Treatment] #3 2nd Right Toe -Time 14:51 -Correct Patient Yes -Correct Side, Site, Position Yes -Correct Procedure Yes -Procedure Performed Yes -Type of Procedure Debridement -Clinical Debridement Subcutaneous -Tissue Removed Subcutaneous -Post Debridement (cm) - Length 1.1 -Post Debridement (cm) - Width 0.6 -Post Debridement (cm) - Depth 0.1 -Total Square (Post) (cm) 0.66 -Area of Debridement (cm) - Length 1.1 -Area of Debridement (cm) - Width 0.6 -Total Square (Area) (cm) 0.66 -Tunneling No -Undermining/Tunneling No -Circular Undermining No -Wound/Ulcer Outcome Not Healed -Ulcer Cleansing Rinsed/ Irrigated with Saline -Foul Odor after Cleansing No -Bioengineered Tissue No -Bleeding Controlled with Pressure -Offloading Yes -Type of Offloading Surgical Shoe -Treatment Response Procedure Tolerated Well -Debridement - Subq, 1st 20sq cm Yes #2 Right Big Toe -Time 14:53 -Correct Patient Yes -Correct Side, Site, Position Yes -Correct Procedure Yes -Procedure Performed Yes -Type of Procedure Debridement -Clinical Debridement Subcutaneous -Tissue Removed Subcutaneous -Post Debridement (cm) - Length 1.8 -Post Debridement (cm) - Width 2 -Post Debridement (cm) - Depth 0.1 -Total Square (Post) (cm) 3.6 -Area of Debridement (cm) - Length 1.8 -Area of Debridement (cm) - Width 2 -Total Square (Area) (cm) 3.6 -Tunneling No -Undermining/Tunneling No -Circular Undermining No -Wound/Ulcer Outcome Not Healed -Ulcer Cleansing Rinsed/ Irrigated with Saline -Foul Odor after Cleansing No -Bioengineered Tissue No -Bleeding Controlled with Pressure -Offloading Yes -Type of Offloading Surgical Shoe -Treatment Response Procedure Tolerated Well -Debridement - Subq, 1st 20sq cm No #1 Right Heel -Time 14:54 -Correct Patient Yes -Correct Side, Site, Position Yes -Correct Procedure Yes -Procedure Performed Yes -Type of Procedure Debridement -Clinical Debridement Subcutaneous -Tissue Removed Subcutaneous -Post Debridement (cm) - Length 2 -Post Debridement (cm) - Width 4.2 -Post Debridement (cm) - Depth 0.3 -Total Square (Post) (cm) 8.4 -Area of Debridement (cm) - Length 2 -Area of Debridement (cm) - Width 4.2 -Total Square (Area) (cm) 8.4 -Tunneling No -Undermining/Tunneling No -Circular Undermining No -Wound/Ulcer Outcome Not Healed -Ulcer Cleansing Rinsed/ Irrigated with Saline -Foul Odor after Cleansing No -Bioengineered Tissue No -Bleeding Controlled with Pressure -Offloading Yes -Type of Offloading Camwalker -Treatment Response Procedure Tolerated Well -Debridement - Subq, 1st 20sq cm No [See Physician Procedure note for Specifics] Pain Scale: 0-10 Numeric [Pain] -Is Patient Pain Free? Yes WC - Nurse 3 - General Ulcer D/C NN Start: 08/27/20 14:02 Freq: Status: Active Protocol: Activity Type Activity Date Activity User E-Sign Co-Sign Detail Recorded Client Recorded Date Recorded By Document 09/18/20 14:53 DELMY [id number] 09/18/20 14:54 DELMY 09/18/20 14:53 Wound Care Nurse 3 [Wound Dressing] #3 2nd Right Toe -Ulcer Cleansing Rinsed/ Irrigated with Saline -Foul Odor after Cleansing No -Primary Dressing Applied C Hydrogel ($) -Primary Dressing Covered/Secured Dry Gauze, with Secured with Tape #2 Right Big Toe -Ulcer Cleansing Rinsed/ Irrigated with Saline -Foul Odor after Cleansing No -Primary Dressing Covered/Secured Dry Gauze, with Secured with Tape #1 Right Heel -Ulcer Cleansing Rinsed/ Irrigated with Saline -Foul Odor after Cleansing No -Primary Dressing Covered/Secured Dry Gauze & with Roll Gauze, Secured with Tape Pain Scale: 0-10 Numeric [Pain] -Is Patient Pain Free? Yes WC - Visit Discharge [Visit Discharge Information] -Discharge Condition Stable -Ambulatory Status Wheelchair -Transportation Private Auto Musculoskeletal: Muscle Wasting, - - Compartments soft Neurological: - - Lack of full sensation to light touch consistent with neuropathy Psych/Mental Status: Normal Affect, Appropriate Debridement Note Post-Debridement Measurements/Treatment WC - Nurse 2 - General Ulcer CM Notes Start: 08/27/20 14:02 Freq: Status: Active Protocol: Activity Type Activity Date Activity User E-Sign Co-Sign Detail Recorded Client Recorded Date Recorded By Document 08/27/20 16:17 [id number] 08/27/20 16:20 Document 09/04/20 15:14 [id number] 09/04/20 15:30 Document 09/11/20 15:42 [id number] 09/11/20 15:47 Document 09/18/20 14:50 [id number] 09/18/20 14:55 08/27/20 09/04/20 09/11/20 16:17 15:14 15:42 Wound Center Nurse 2 #4 5th Right Toe -Time 14:40 -Correct Patient Yes No -Correct Side, Site, Position Yes No -Correct Procedure Yes No -Procedure Performed Yes No -Type of Procedure Debridement -Clinical Debridement Subcutaneous -Tissue Removed Subcutaneous -Post Debridement (cm) - Length 0.6 0 -Post Debridement (cm) - Width 0.3 0 -Post Debridement (cm) - Depth 0.1 0 -Total Square (Post) (cm) 0.18 0 -Area of Debridement (cm) - Length 0.6 0 -Area of Debridement (cm) - Width 0.3 0 -Total Square (Area) (cm) 0.18 0 -Tunneling No -Undermining/Tunneling No -Circular Undermining No -Wound/Ulcer Outcome Not Healed Healed- Epithelialized -Ulcer Cleansing Rinsed/ Irrigated with Saline -Foul Odor after Cleansing No -Bioengineered Tissue No -Debridement - Subq, 1st 20sq cm No #3 2nd Right Toe -Time 14:40 15:17 15:42 -Correct Patient Yes Yes Yes -Correct Side, Site, Position Yes Yes Yes -Correct Procedure Yes Yes Yes -Procedure Performed Yes Yes Yes -Type of Procedure Debridement Debridement Debridement -Clinical Debridement Subcutaneous Subcutaneous Subcutaneous -Tissue Removed Subcutaneous Subcutaneous Subcutaneous -Post Debridement (cm) - Length 0.4 0.3 0.4 -Post Debridement (cm) - Width 0.4 0.3 0.5 -Post Debridement (cm) - Depth 0.1 0.1 0.1 -Total Square (Post) (cm) 0.16 0.09 0.20 -Area of Debridement (cm) - Length 0.4 0.3 0.4 -Area of Debridement (cm) - Width 0.4 0.3 0.5 -Total Square (Area) (cm) 0.16 0.09 0.20 -Tunneling No No No -Undermining/Tunneling No No No -Circular Undermining No No No -Wound/Ulcer Outcome Not Healed Not Healed Not Healed -Ulcer Cleansing Rinsed/ Rinsed/ Rinsed/ Irrigated with Irrigated with Irrigated with Saline Saline Saline -Foul Odor after Cleansing No No No -Bioengineered Tissue No No No -Bleeding Controlled with Pressure Pressure -Offloading No No -Type of Offloading -Treatment Response Procedure Procedure Tolerated Well Tolerated Well -Debridement - Subq, 1st 20sq cm No No Yes #2 Right Big Toe -Time 14:40 15:43 -Correct Patient Yes Yes Yes -Correct Side, Site, Position Yes Yes Yes -Correct Procedure Yes Yes Yes -Procedure Performed Yes Yes Yes -Type of Procedure Debridement Debridement Debridement -Clinical Debridement Subcutaneous Bone Subcutaneous -Tissue Removed Subcutaneous Fascia,Tendon Subcutaneous -Post Debridement (cm) - Length 1.8 1.5 1.5 -Post Debridement (cm) - Width 1.8 1.8 1.3 -Post Debridement (cm) - Depth 0.1 0.1 0.1 -Total Square (Post) (cm) 3.24 2.70 1.95 -Area of Debridement (cm) - Length 1.8 1.5 1.5 -Area of Debridement (cm) - Width 1.8 1.8 1.3 -Total Square (Area) (cm) 3.24 2.70 1.95 -Tunneling No No No -Undermining/Tunneling No No No -Circular Undermining No No No -Wound/Ulcer Outcome Not Healed Not Healed Not Healed -Ulcer Cleansing Rinsed/ Rinsed/ Rinsed/ Irrigated with Irrigated with Irrigated with Saline Saline Saline -Foul Odor after Cleansing No No No -Bioengineered Tissue No No No -Bleeding Controlled with Pressure Pressure -Offloading Yes No -Type of Offloading Surgical Shoe -Treatment Response Procedure Procedure Tolerated Well Tolerated Well -Debridement - Subq, 1st 20sq cm No No -Debridement - Bone, 1st 20sq cm Yes #1 Right Heel -Time 14:40 15:27 15:47 -Correct Patient Yes Yes Yes -Correct Side, Site, Position Yes Yes Yes -Correct Procedure Yes Yes Yes -Procedure Performed Yes Yes Yes -Type of Procedure Debridement Debridement Debridement -Clinical Debridement Subcutaneous Subcutaneous Subcutaneous -Tissue Removed Subcutaneous Subcutaneous Subcutaneous -Post Debridement (cm) - Length 2.4 2.5 2.4 -Post Debridement (cm) - Width 3 3.8 4.2 -Post Debridement (cm) - Depth 0.9 1.0 0.6 -Total Square (Post) (cm) 7.2 9.50 10.08 -Area of Debridement (cm) - Length 2.4 2.5 2.4 -Area of Debridement (cm) - Width 3 3.8 4.2 -Total Square (Area) (cm) 7.2 9.50 10.08 -Tunneling No No No -Undermining/Tunneling No No No -Circular Undermining No No No -Wound/Ulcer Outcome Healed- Not Healed Not Healed Surgical Closure -Ulcer Cleansing Rinsed/ Rinsed/ Irrigated with Irrigated with Saline Saline -Foul Odor after Cleansing No No No -Bioengineered Tissue No No No -Bleeding Controlled with Pressure Pressure -Offloading No No -Type of Offloading -Treatment Response Procedure Procedure Tolerated Well Tolerated Well -Debridement - Subq, 1st 20sq cm Yes Yes No Pain Scale: 0-10 Numeric Is Patient Pain Free? Yes Yes Yes 09/18/20 14:50 Wound Center Nurse 2 #4 5th Right Toe -Time -Correct Patient -Correct Side, Site, Position -Correct Procedure -Procedure Performed -Type of Procedure -Clinical Debridement -Tissue Removed -Post Debridement (cm) - Length -Post Debridement (cm) - Width -Post Debridement (cm) - Depth -Total Square (Post) (cm) -Area of Debridement (cm) - Length -Area of Debridement (cm) - Width -Total Square (Area) (cm) -Tunneling -Undermining/Tunneling -Circular Undermining -Wound/Ulcer Outcome -Ulcer Cleansing -Foul Odor after Cleansing -Bioengineered Tissue -Debridement - Subq, 1st 20sq cm #3 2nd Right Toe -Time 14:51 -Correct Patient Yes -Correct Side, Site, Position Yes -Correct Procedure Yes -Procedure Performed Yes -Type of Procedure Debridement -Clinical Debridement Subcutaneous -Tissue Removed Subcutaneous -Post Debridement (cm) - Length 1.1 -Post Debridement (cm) - Width 0.6 -Post Debridement (cm) - Depth 0.1 -Total Square (Post) (cm) 0.66 -Area of Debridement (cm) - Length 1.1 -Area of Debridement (cm) - Width 0.6 -Total Square (Area) (cm) 0.66 -Tunneling No -Undermining/Tunneling No -Circular Undermining No -Wound/Ulcer Outcome Not Healed -Ulcer Cleansing Rinsed/ Irrigated with Saline -Foul Odor after Cleansing No -Bioengineered Tissue No -Bleeding Controlled with Pressure -Offloading Yes -Type of Offloading Surgical Shoe -Treatment Response Procedure Tolerated Well -Debridement - Subq, 1st 20sq cm Yes #2 Right Big Toe -Time 14:53 -Correct Patient Yes -Correct Side, Site, Position Yes -Correct Procedure Yes -Procedure Performed Yes -Type of Procedure Debridement -Clinical Debridement Subcutaneous -Tissue Removed Subcutaneous -Post Debridement (cm) - Length 1.8 -Post Debridement (cm) - Width 2 -Post Debridement (cm) - Depth 0.1 -Total Square (Post) (cm) 3.6 -Area of Debridement (cm) - Length 1.8 -Area of Debridement (cm) - Width 2 -Total Square (Area) (cm) 3.6 -Tunneling No -Undermining/Tunneling No -Circular Undermining No -Wound/Ulcer Outcome Not Healed -Ulcer Cleansing Rinsed/ Irrigated with Saline -Foul Odor after Cleansing No -Bioengineered Tissue No -Bleeding Controlled with Pressure -Offloading Yes -Type of Offloading Surgical Shoe -Treatment Response Procedure Tolerated Well -Debridement - Subq, 1st 20sq cm No -Debridement - Bone, 1st 20sq cm #1 Right Heel -Time 14:54 -Correct Patient Yes -Correct Side, Site, Position Yes -Correct Procedure Yes -Procedure Performed Yes -Type of Procedure Debridement -Clinical Debridement Subcutaneous -Tissue Removed Subcutaneous -Post Debridement (cm) - Length 2 -Post Debridement (cm) - Width 4.2 -Post Debridement (cm) - Depth 0.3 -Total Square (Post) (cm) 8.4 -Area of Debridement (cm) - Length 2 -Area of Debridement (cm) - Width 4.2 -Total Square (Area) (cm) 8.4 -Tunneling No -Undermining/Tunneling No -Circular Undermining No -Wound/Ulcer Outcome Not Healed -Ulcer Cleansing Rinsed/ Irrigated with Saline -Foul Odor after Cleansing No -Bioengineered Tissue No -Bleeding Controlled with Pressure -Offloading Yes -Type of Offloading Camwalker -Treatment Response Procedure Tolerated Well -Debridement - Subq, 1st 20sq cm No Pain Scale: 0-10 Numeric Is Patient Pain Free? Yes WC - Nurse 3 - General Ulcer D/C NN Start: 08/27/20 14:02 Freq: Status: Active Protocol: Activity Type Activity Date Activity User E-Sign Co-Sign Detail Recorded Client Recorded Date Recorded By Document 09/04/20 15:57 RB [id number] 09/04/20 15:59 RB Document 09/11/20 15:55 RB [id number] 09/11/20 15:57 RB Document 09/18/20 14:53 KR [id number] 09/18/20 14:54 KR 09/04/20 09/11/20 09/18/20 15:57 15:55 14:53 Wound Care Nurse 3 #3 2nd Right Toe -Ulcer Cleansing Rinsed/ Rinsed/ Irrigated with Irrigated with Saline Saline -Foul Odor after Cleansing No -Primary Dressing Applied C Hydrogel ($) -Other Dressing HYDROGEL saline moistened gauze -Primary Dressing Covered/Secured with Dry Gauze,Dry Dry Gauze,Dry Dry Gauze, Gauze & Roll Gauze & Roll Secured with Gauze,Secured Gauze,Secured Tape with Tape with Tape #2 Right Big Toe -Ulcer Cleansing Rinsed/ Rinsed/ Irrigated with Irrigated with Saline Saline -Foul Odor after Cleansing No -Other Dressing HYDROGEL saline moistened gauze -Primary Dressing Covered/Secured with Dry Gauze,Dry Dry Gauze,Dry Dry Gauze, Gauze & Roll Gauze & Roll Secured with Gauze,Secured Gauze,Secured Tape with Tape with Tape #1 Right Heel -Ulcer Cleansing Rinsed/ Irrigated with Saline -Foul Odor after Cleansing No -Other Dressing HYDROGEL saline moistened gauze , abd nurses hat -Primary Dressing Covered/Secured with Dry Gauze,Dry Dry Gauze,Dry Dry Gauze & Gauze & Roll Gauze & Roll Roll Gauze, Gauze,Secured Gauze,Secured Secured with with Tape with Tape Tape Treatment Response Procedure Procedure Tolerated Well Tolerated Well Vital Signs Blood Pressure (90/60-120/80) 160/54 H 148/75 H Blood Pressure Mean (mm Hg) 89 99 Source Monitor Monitor Position Semi-Fowlers Semi-Fowlers Blood Pressure Location Left Arm Left Arm Pain Scale: 0-10 Numeric Is Patient Pain Free? Yes Yes Yes WC - Visit Discharge Discharge Condition Stable Stable Stable Ambulatory Status Wheelchair Wheelchair Wheelchair Transportation Private Auto Private Auto Private Auto Medication Reconcilliation completed & No No provided to patient/care provider Clinical Summary of Care Provided Yes Yes Wound debrided: heel Laterality: Right Wound Grade/Stage: grade 1 Type of Debridement: Excisional debridement Anesthesia Used: 4% Lidocaine Solution Depth: in the subcutaneous layer Percentage of wound debrided: 100 Instrument Used: #15 blade Tissue Removed: fibrous, devitalized subcutaneous, biofilm, slough Severity: Fat Layer Exposed Amount of bleeding with debridement: Mild Bleeding Controlled with: Pressure Patient tolerated procedure well - Additional Wound Wound debrided: distal 2nd toe Laterality: Right Wound Grade/Stage: grade 1 Type of Debridement: Excisional debridement Anesthesia Used: 4% Lidocaine Solution Depth: in the subcutaneous layer Percentage of wound debrided: 100 Instrument Used: #15 blade Tissue Removed: fibrous, devitalized subcutaneous, biofilm, slough Severity: Fat Layer Exposed Amount of bleeding with debridement: Mild Bleeding Controlled with: Pressure Patient tolerated procedure: Patient tolerated procedure well - Additional Wound Wound debrided: distal hallux Laterality: Right Wound Grade/Stage: grade 3 Type of Debridement: Excisional debridement Anesthesia Used: 5% Lidocaine Gel Depth: in the subcutaneous layer Percentage of wound debrided: 100 Instrument Used: #15 blade Tissue Removed: fibrous, devitalized subcutaneous, biofilm, slough Severity: Fat Layer Exposed Amount of bleeding with debridement: Mild Bleeding Controlled with: Pressure Patient tolerated procedure: Patient tolerated procedure well Assessment/Plan Active Problems (Last Updated 08/14/20 @ 10:03 by Julee Reynolds) 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 (Acute) Decubitus ulcer of buttock, stage 1 (Acute) 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 (Acute) Ulcer of right heel and midfoot with necrosis of muscle (Chronic) Ulcer of right foot with fat layer exposed (Acute) Peripheral vascular disease (Acute) ESRD (end stage renal disease) on dialysis (Chronic) Cellulitis of right lower limb (Acute) Macrocytic anemia (Chronic) Anemia of chronic renal failure, stage 5 (Chronic) Osteomyelitis of right foot (Acute) right hallux Assessment: Right heel decubitus ulcer with muscle, fascial tissue, and now lateral calcaneus bone layer exposed. Right great toe ulcer bone exposed; osteomyelitis (debrided away previously). Right second to ulcer fat layer exposed, improving. Right fifth toe ulcer healed. Peripheral vascular disease. Infection/cellulitis right foot improving. Delayed healing. End-stage renal disease on dialysis. Cardiac history Plan: I reviewed and discussed his case. Debridement was performed in an excisional subcutaneous manner as noted in the nursing panel. To continue to clean feet with soap and water daily. I recommend changing all of the ulcer sites daily with 0.25% dakin wet to dry dressing. I reviewed his heel ulcer cultures which demonstrated the following growth: citrobacter koseri, pseudomonas aeroginosa and staphylococcus aureus. Clinical improvement is noted w/ oral antibiotics but deeper penetration recommended by infectious disease. ID consult appreciated. IV cefepime 3g w/HD and increased oral doxy to 100 mg BID recommended. Serial labs will be followed. The distal phalanges of the toes appear to have diminished bone density which may be associated with age-related bone density loss in this site will be monitored with serial x-rays to monitor for any future bone infection development. To monitor for worsening local signs of infection and tissue loss and systemic illness which is not noted today. His vascular studies were reviewed with bilateral monophasic waveforms and poor ankle-brachial indices. I recommend a vascular surgery referral and he would like to follow-up with Dr. Taylor at an outside facility. This is scheduled for 09/25/2020. It is also noted that he had a low ejection fraction on his echocardiogram and part of his abnormal noninvasive vascular studies may be secondary to poor peripheral perfusion due to low cardiac output. To continue offloading by wearing surgical shoes to prevent pressure on the toes. I also recommend continue with donut offloading pillow to keep pressure off of his heel while resting and sleeping. This is going well so far. I answered all of his questions. I answered his family's question including his daughter and .
== END 2020-09-26 23:59 ==
LOC: WC 15:00
PROVIDERS: Referring Provider Nurse Practitioner Family; Visit Provider Podiatrist
DX: L89.613 Pressure ulcer of right heel, stage 3 (principal); L97.514 Non-pressure chronic ulcer of other part of right foot with necrosis of bone; L03.115 Cellulitis of right lower limb; M86.171 Other acute osteomyelitis, right ankle and foot; I12.0 Hypertensive chronic kidney disease with stage 5 chronic kidney disease or end stage renal disease; N18.6 End stage renal disease; D63.1 Anemia in chronic kidney disease; Z99.2 Dependence on renal dialysis; I73.9 Peripheral vascular disease, unspecified; I25.810 Atherosclerosis of coronary artery bypass graft(s) without angina pectoris; E78.5 Hyperlipidemia, unspecified; H54.8 Legal blindness, as defined in USA; Z79.82 Long term (current) use of aspirin; Z79.4 Long term (current) use of insulin; I25.2 Old myocardial infarction; Z95.5 Presence of coronary angioplasty implant and graft
CPT/HCPCS: 11042; 11044; 87015; 87070; 87075; 87077; 87101; 87116; 87176; 87186; 87205; 87206; 87640; 88304; 88305; 88307; 88311; 93923